=== PATIENT | female | born 1950 | race Caucasian/White ===

== ENCOUNTER → 2017-08-19 | Outpatient (CLI) | payer MEDICARE ==
[~2017-08-19] MED LIST: CONTRAST GIVEN MC; IOHEXOL 240 MG/ML 50ML VIAL. PO
[2017-08-19 08:57] LABS: BLOOD UREA NITROGEN 20 mg/dL (7-20)
[2017-08-19 08:57] LABS: CREATININE 0.9 mg/dL (0.6-1.0); GFR 62.6
[2017-08-19] MEDS: IOHEXOL 300 MG/ML 100ML VIAL. IV (09:43)
== END | disposition home or self-care (01) ==
LOC: CT 07:22
DX: M47.896 Other spondylosis, lumbar region (principal); I70.0 Atherosclerosis of aorta; I25.10 Atherosclerotic heart disease of native coronary artery without angina pectoris; J98.11 Atelectasis; I10 Essential (primary) hypertension; E11.9 Type 2 diabetes mellitus without complications; E78.5 Hyperlipidemia, unspecified
CPT/HCPCS: 36415; 74177; 82565; 84520; Q9966; Q9967

== ENCOUNTER → 2017-08-23 | Outpatient (CLI) | payer MEDICARE ==
[2017-08-23] MEDS: REGADENOSON 0.4 MG/5 ML DISP.SYRIN. IV (10:10)
== END | disposition home or self-care (01) ==
LOC: NM 08:22
DX: I25.10 Atherosclerotic heart disease of native coronary artery without angina pectoris (principal); E11.65 Type 2 diabetes mellitus with hyperglycemia; E78.00 Pure hypercholesterolemia, unspecified
CPT/HCPCS: 78452; 93017; 96374; 96375; 96376; A9500; J2785

== ENCOUNTER → 2017-09-10 | Outpatient (CLI) | payer MEDICARE | END | disposition home or self-care (01) | LOC: KCIC 08:27 | DX: L03.115 Cellulitis of right lower limb (principal); E11.9 Type 2 diabetes mellitus without complications | CPT/HCPCS: 73620 ==

== ENCOUNTER 2018-06-11 22:31 | Emergency (ER) | payer MEDICARE ==
[~2018-06-11] VITALS: Ht 165.1 cm; Wt 78.5 kg
[~2018-06-11 22:31] MED LIST changes: +ALBU8.5H6 INH; +ASPI-482 PO; +AVANDIA; -CONTRAST GIVEN MC; +CRESTOR10 MG PO; +CYCL10TA2 PO; +DOCU-109 PO; +HYDR-3165 PO; +INSU100C4 SQ; +INSU100V8 SQ; -IOHEXOL 240 MG/ML 50ML VIAL. PO; +NAPR220T70 PO; +NAPR500T8 PO; +OMEG500C3 PO; +OXYB5TAB7 PO; +PROP40TA PO; +SITA100T PO; +TRAM50TA PO; +TRAZ-85 PO; +ZOLP10TA PO; +albuterol; +ambien; +fish oil; +flexeril; +traz; +trazodone
--- NOTE | 2018-06-12 00:29 | PHYS DOC ---
Past Medical History Past Medical History: Anxiety, Diabetes-Type II, Heart Disease, Hypertension, Other Additional Past Medical Histor: INSOMNIA Past Surgical History: Coronary Bypass Surgery Additional Past Surgical Histo: CABG x 4, back surgery Alcohol Use: None Drug Use: None Adult General Chief Complaint Chief Complaint: BLOOD SUGAR PROBLEM HPI HPI Patient is a 68 year old female who presents with repeated blood sugar. Her sugar was in the 400s shortly after starting some nausea and vomiting this evening. No blood in the emesis. Patient feels better. This started approximately 1830 tonight. No diarrhea. Patient was eating [place] food from a restaurant. No other family members who ate the same food have been sick. Time his made things better. Patient and daughter who is with the patient called her primary care physician who recommended that the patient be evaluated in the emergency department.[] Review of Systems Review of Systems Constitutional: Denies fever or chills [] Eyes: Denies change in visual acuity, redness, or eye pain [] HENT: Denies nasal congestion or sore throat [] Respiratory: Denies cough or shortness of breath [] Cardiovascular: No chest pain or palpitations[] GI:s SEE history of present illness [] : Denies dysuria or hematuria [] Musculoskeletal: Denies back pain or joint pain [] Integument: Denies rash or skin lesions [] Neurologic: Denies headache, focal weakness or sensory changes [] Endocrine: Denies polyuria or polydipsia [] All other systems were reviewed and found to be within normal limits, except as documented in this note. Current Medications Current Medications Current Medications Medications (Trade) Dose Ordered Sig/[facility] Start Time Stop Time Status Last Admin Dose Admin Hyoscyamine (Anaspaz) 0.125 mg ONCE ONCE 06/12/18 01:00 06/12/18 01:01 DC 06/12/18 01:27 0.125 MG Ondansetron HCl (Zofran) 4 mg 1X ONCE 06/12/18 01:00 06/12/18 01:01 DC 06/12/18 01:27 4 MG Sodium Chloride 500 ml @ 500 mls/hr 1X ONCE 06/12/18 01:00 06/12/18 01:59 DC 06/12/18 01:28 500 MLS/HR Allergies Allergies Allergies Coded Allergies Type Severity Reaction Last Updated Verified No Known Medication Allergies Allergy Unknown 09/27/14 Yes doxycycline Adverse Reaction Intermediate nausea and vomiting 09/16/14 Yes Physical Exam Physical Exam Constitutional: Well developed, well nourished, no acute distress, non-toxic appearance. [] HENT: Normocephalic, atraumatic, bilateral external ears normal, oropharynx moist, no oral exudates, nose normal. [] Eyes: PERRLA, EOMI, conjunctiva normal, no discharge. [] Neck: Normal range of motion, no tenderness, supple, no stridor. [] Cardiovascular:Heart rate regular rhythm, no murmur [] Lungs & Thorax: Bilateral breath sounds clear to auscultation [] Abdomen: Bowel sounds normal, soft, no tenderness, no masses, no pulsatile masses. [] Skin: Warm, dry, no erythema, no rash. [] Back: No tenderness, no CVA tenderness. [] Extremities: No tenderness, no cyanosis, no clubbing, ROM intact, no edema. [] Neurologic: Alert and oriented X 3, normal motor function, normal sensory function, no focal deficits noted. [] Psychologic: Affect normal, judgement normal, mood normal. [] Current Patient Data Vital Signs Vital Signs Date Time Temp Pulse Resp B/P (MAP) Pulse Ox O2 Delivery O2 Flow Rate FiO2 06/11/18 23:36 98.4 76 18 126/61 (82) 97 Room Air 98.4 Lab Values Laboratory Tests Test 06/12/18 00:08 06/12/18 00:10 06/12/18 00:20 06/12/18 02:02 Glucose (Fingerstick) 261 mg/dL (70-99) H 261 mg/dL (70-99) H White Blood Count 12.9 x10^3/uL (4.0-11.0) H Red Blood Count 4.93 x10^6/uL (3.50-5.40) Hemoglobin 14.6 g/dL (12.0-15.5) Hematocrit 44.1 % (36.0-47.0) Mean Corpuscular Volume 90 fL (79-100) Mean Corpuscular Hemoglobin 30 pg (25-35) Mean Corpuscular Hemoglobin Concent 33 g/dL (31-37) Red Cell Distribution Width 13.3 % (11.5-14.5) Platelet Count 197 x10^3/uL (140-400) Neutrophils (%) (Auto) 81 % (31-73) H Lymphocytes (%) (Auto) 8 % (24-48) L Monocytes (%) (Auto) 9 % (0-9) Eosinophils (%) (Auto) 2 % (0-3) Basophils (%) (Auto) 0 % (0-3) Neutrophils # (Auto) 10.4 x10^3uL (1.8-7.7) H Lymphocytes # (Auto) 1.0 x10^3/uL (1.0-4.8) Monocytes # (Auto) 1.2 x10^3/uL (0.0-1.1) H Eosinophils # (Auto) 0.3 x10^3/uL (0.0-0.7) Basophils # (Auto) 0.0 x10^3/uL (0.0-0.2) Sodium Level 142 mmol/L (136-145) Potassium Level 3.6 mmol/L (3.5-5.1) Chloride Level 104 mmol/L (98-107) Carbon Dioxide Level 29 mmol/L (21-32) Anion Gap 9 (6-14) Blood Urea Nitrogen 18 mg/dL (7-20) Creatinine 0.7 mg/dL (0.6-1.0) Estimated GFR (Cockcroft-Gault) 83.5 BUN/Creatinine Ratio 26 (6-20) H Glucose Level 272 mg/dL (70-99) H Calcium Level 9.7 mg/dL (8.5-10.1) Total Bilirubin 0.5 mg/dL (0.2-1.0) Aspartate Amino Transferase (AST) 19 U/L (15-37) Alanine Aminotransferase (ALT) 25 U/L (14-59) Alkaline Phosphatase 62 U/L (46-116) Total Protein 6.9 g/dL (6.4-8.2) Albumin 3.2 g/dL (3.4-5.0) L Albumin/Globulin Ratio 0.9 (1.0-1.7) L Lipase 155 U/L (73-393) Urine Collection Type Unknown Urine Color Yellow Urine Clarity Clear Urine pH 7.5 Urine Specific [place] >=1.030 Urine Protein 30 mg/dL (NEG-TRACE) Urine Glucose (UA) >=1000 mg/dL (NEG) Urine Ketones (Stick) 15 mg/dL (NEG) Urine Blood Negative (NEG) Urine Nitrite Negative (NEG) Urine Bilirubin Negative (NEG) Urine Urobilinogen Dipstick 1.0 mg/dL (0.2 mg/dL) Urine Leukocyte Esterase Negative (NEG) Urine RBC 1-2 /HPF (0-2) Urine WBC 1-4 /HPF (0-4) Urine Squamous Epithelial Cells Mod /LPF Urine Bacteria Few /HPF (0-FEW) Urine Mucus Slight /LPF Laboratory Tests 06/12/18 00:10 Laboratory Tests 06/12/18 00:10 EKG EKG [] Radiology/Procedures Radiology/Procedures [] Course & Med Decision Making Course & Med Decision Making Pertinent Labs and Imaging studies reviewed. (See chart for details) ED course: Patient arrived, was placed in bed, tolerated exam well. Patient was given IV fluids and she was. Tolerant. Her blood sugar did not significantly change after the IV fluids. But she felt better and wanted to go home. Enzo decision making: Patient does not appear to be in diabetic ketoacidosis given the normal high carb on her chemistry panel. No evidence of a urinary tract infection. No evidence of significant illness nor acute coronary syndrome triggering today's emergency department visit.[] Dragon Disclaimer Dragon Disclaimer This electronic medical record was generated, in whole or in part, using a voice recognition dictation system. Departure Departure Impression: Primary Impression: Hyperglycemia due to type 2 diabetes mellitus Additional Impression: Vomiting Disposition: HOME, SELF-CARE Condition: IMPROVED Referrals: JOANA GILLETTE MD (PCP) Follow-up within 2 days Patient Instructions: Nausea and Vomiting Additional Instructions: Drink plenty of fluids, frequent small sips. No fatty foods, no milk, and no pepper for the next 48 hours. For the next 48 hours eat a diet rich in carbohydrates with foods such as bananas, rice, applesauce, and toast. Follow- up with your regular doctor within 2 days. Return to the ER if unable to tolerate liquids, your sugar persistently stays above 300, or any other concerns. 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
[2018-06-12 00:31] LABS: BASO % 0 % (0-3); EOS # 0.3 x10^3/uL (0.0-0.7); EOS % 2 % (0-3); HEMATOCRIT 44.1 % (36.0-47.0); HEMOGLOBIN 14.6 g/dL (12.0-15.5); LYMPH % 8 % (24-48); MEAN CORPUSCULAR HEMOGLOBIN 30 pg (25-35); MEAN CORPUSCULAR HGB CONC 33 g/dL (31-37); MEAN CORPUSCULAR VOLUME 90 fL (79-100); MONO # 1.2 x10^3/uL (0.0-1.1); MONO % 9 % (0-9); NEUT # 10.4 x10^3uL (1.8-7.7); NEUT % 81 % (31-73); PLATELET COUNT 197 x10^3/uL (140-400); RED BLOOD COUNT 4.93 x10^6/uL (3.50-5.40); RED CELL DISTRIBUTION WIDTH 13.3 % (11.5-14.5); WHITE BLOOD COUNT 12.9 x10^3/uL (4.0-11.0)
[2018-06-12 00:34] LABS: BILIRUBIN,URINE NEGATIVE (NEG); CLARITY,URINE CLEAR; COLOR,URINE YELLOW; NITRITE,URINE NEGATIVE (NEG); PH,URINE 7.5; PROTEIN,URINE 30 mg/dL (NEG-TRACE)
[2018-06-12 00:38] LABS: BACTERIA,URINE FEW /HPF (0-FEW); SQUAMOUS EPITHELIAL CELL,UR MOD /LPF
[2018-06-12 00:39] LABS: CALCIUM 9.7 mg/dL (8.5-10.1); CREATININE 0.7 mg/dL (0.6-1.0); GFR 83.5; POTASSIUM 3.6 mmol/L (3.5-5.1)
[2018-06-12 00:45] LABS: ALBUMIN 3.2 g/dL (3.4-5.0); ALBUMIN/GLOBULIN RATIO 0.9 (1.0-1.7); TOTAL BILIRUBIN 0.5 mg/dL (0.2-1.0); TOTAL PROTEIN 6.9 g/dL (6.4-8.2)
[2018-06-12] MEDS ORDERED: ONDANSETRON PF 4 MG/2 ML VIAL. IV ONE (01:00)
[2018-06-12] MEDS ORDERED: HYOSCYAMINE 0.125 MG TAB.RAPDIS PO ONE (01:00)
[2018-06-12] MEDS ORDERED: IV NORMAL SALINE 500ML BAG 500 ML IV ONE (01:00)
[2018-06-12 02:00] VITALS: BP 115/55
[2018-06-12] MEDS ORDERED: HYOS0.1264 PO (02:23)
[2018-06-12] MEDS ORDERED: ONDA4TAB7 PO (02:23)
== END 2018-06-12 02:30 | disposition home or self-care (01) ==
LOC: ER 22:31
DX: E11.65 Type 2 diabetes mellitus with hyperglycemia (principal); R11.2 Nausea with vomiting, unspecified; I11.9 Hypertensive heart disease without heart failure; Z95.1 Presence of aortocoronary bypass graft; Z88.1 Allergy status to other antibiotic agents
CPT/HCPCS: 36415; 80053; 81001; 82962; 83690; 85025; 96361; 96374; 99283; J2405; J7040

== ENCOUNTER 2018-07-10 08:07 | Emergency (ER) | payer MEDICARE ==
[~2018-07-10] VITALS: Ht 165.1 cm; Wt 77.1 kg
[~2018-07-10 08:07] MED LIST changes: +HYOS0.1264 PO; +ONDA4TAB7 PO; +TRAZ-118 PO; -TRAZ-85 PO
[2018-07-10] MEDS ORDERED: ONDANSETRON PF 4 MG/2 ML VIAL. IV ONE (09:15)
[2018-07-10] MEDS ORDERED: MORPHINE SULFATE 4 MG/ML VIAL. IV ONE (09:15)
--- NOTE | 2018-07-10 09:26 | PHYS DOC ---
Past Medical History Past Medical History: Anxiety, Diabetes-Type II, Heart Disease, Hypertension, Other Additional Past Medical Histor: INSOMNIA Past Surgical History: Coronary Bypass Surgery Additional Past Surgical Histo: CABG x 4, back surgery Alcohol Use: None Drug Use: None Adult General Chief Complaint Chief Complaint: HIP PAIN HPI HPI Patient is a 68 year old female, accompanied by her family, with complaints of left hip pain since feeling a pop in her hip last night at 2030. Patient denies any fall. States that she tripped and caught herself and that is when she felt her hip pop. Patient reports she has been able to minimally bear weight on the leg since the injury. She rates the pain a constant 6 out of 10 on the pain scale and states that with movement or weightbearing the pain shoots to a 10 out of 10. She denies any numbness, tingling, or weakness of the affected extremity. She states that she last had something to drink approximately an hour prior to arrival. She denies any chest pain, dizziness, syncope, or back pain. Review of Systems Review of Systems Constitutional: Denies fever or chills [] Eyes: Denies changes Cardiovascular: No additional information not addressed in HPI [] Musculoskeletal: See history of present illness Integument: Denies rash or skin lesions [] Neurologic: Denies headache, focal weakness or sensory changes [] Endocrine: Denies polyuria or polydipsia [] Complete systems were reviewed and found to be within normal limits, except as documented in this note. Current Medications Current Medications Current Medications Medications (Trade) Dose Ordered Sig/[facility] Start Time Stop Time Status Last Admin Dose Admin Morphine Sulfate (Morphine Sulfate) 4 mg 1X ONCE 07/10/18 09:15 07/10/18 09:16 DC 07/10/18 09:26 4 MG Ondansetron HCl (Zofran) 4 mg 1X ONCE 07/10/18 09:15 07/10/18 09:16 DC 07/10/18 09:25 4 MG Allergies Allergies Allergies Coded Allergies Type Severity Reaction Last Updated Verified doxycycline Adverse Reaction Intermediate nausea and vomiting 09/16/14 Yes Physical Exam Physical Exam Constitutional: Well developed, well nourished, moderate distress, non-toxic appearance. [] HENT: Normocephalic, atraumatic, bilateral external ears normal, nose normal. [ ] Eyes: conjunctiva normal, no discharge. [] Neck: Normal range of motion, no stridor. [] Lungs & Thorax: Respirations even and unlabored, no retractions Skin: Warm, dry, no erythema, no rash. [] Extremities: No cyanosis, no clubbing, no edema; left lateral hip TTP, no shortening of lower left extremity, mild external rotation of lower left extremity, 2+ pulses and left dorsalis pedis and left posterior tibial Neurologic: Alert and oriented X 3, normal motor function, normal sensory function, no focal deficits noted. [] Psychologic: Affect normal, judgement normal, mood normal. [] Current Patient Data Vital Signs Vital Signs Date Time Temp Pulse Resp B/P (MAP) Pulse Ox O2 Delivery O2 Flow Rate FiO2 07/10/18 09:56 16 95 Room Air 07/10/18 08:54 99.1 81 162/72 (102) 99.1 EKG EKG [] Radiology/Procedures Radiology/Procedures PROCEDURE: HIP LEFT 2V WITH PELVIS Left hip, 3 views, 07/10/2018: HISTORY: Injury No fracture or dislocation is identified. The hip joint spaces are well preserved. There is mild spurring along the margins of both greater trochanters. A surgical clip is projected over left groin region. IMPRESSION: No acute bony abnormality is detected.[] Course & Med Decision Making Course & Med Decision Making Pertinent Labs and Imaging studies reviewed. (See chart for details) Dx: left hip pain, X-ray of left hip was negative for any acute fracture or dislocation. Discussed these results with patient and her family. We will order a walker for patient to use for ambulation. Encouraged patient to apply ice and activity as tolerated. Prescription written for hydrocodone. Follow-up with your primary care doctor if symptoms persist, return to the ER if symptoms worsen. Patient verbalized an understanding of home care, medications, follow-up, and return to ED instructions and was in agreement with the plan of care. [] Dragon Disclaimer Dragon Disclaimer This electronic medical record was generated, in whole or in part, using a voice recognition dictation system. Departure Departure Impression: Primary Impression: Acute pain of left hip Disposition: HOME, SELF-CARE Condition: STABLE Referrals: JOANA GILLETTE MD (PCP) Patient Instructions: Hip Pain Additional Instructions: Fill prescription(s) and use as directed. Recommend application of ice, elevation, and rest of affected extremity. Use the walker provided for ambulation. Follow up with your primary care doctor if symptoms persist. Return to the ER if your symptoms worsen. Scripts Hydrocodone Bit/Acetaminophen (HYDROCODONE-APAP 5-325 ) 1 Tab Tablet 1 TAB PO PRN Q6HRS PRN for PAIN for 3 Days, #12 TAB 0 Refills Prov: ANTONELLA MENDOZA APRN 07/10/18 ANTONELLA MENDOZA APRN Jul 10, 2018 09:26
--- NOTE | 2018-07-10 09:53 | RAD ---
Left hip, 3 views, 07/10/2018: HISTORY: Injury No fracture or dislocation is identified. The hip joint spaces are well preserved. There is mild spurring along the margins of both greater trochanters. A surgical clip is projected over left groin region. IMPRESSION: No acute bony abnormality is detected. Electronically signed by: Samir Singer MD (07/10/2018 9:50 AM) [facility]
[2018-07-10] MEDS ORDERED: HYDR-2761 PO (10:38)
[2018-07-10 10:53] VITALS: BP 120/59
== END 2018-07-10 11:20 | disposition home or self-care (01) ==
LOC: ER 08:07
DX: M25.552 Pain in left hip (principal); F41.9 Anxiety disorder, unspecified; E11.9 Type 2 diabetes mellitus without complications; I12.9 Hypertensive chronic kidney disease with stage 1 through stage 4 chronic kidney disease, or unspecified chronic kidney disease; Z95.1 Presence of aortocoronary bypass graft; Z88.8 Allergy status to other drugs, medicaments and biological substances
CPT/HCPCS: 73502; 96374; 96375; 99284; J2270; J2405

== ENCOUNTER 2018-12-26 14:26 | Emergency (ER) | payer MEDICARE ==
[~2018-12-26] VITALS: Ht 160 cm; Wt 80.7 kg
[~2018-12-26 14:26] MED LIST changes: +HYDR-2761 PO
--- NOTE | 2018-12-26 15:03 | PHYS DOC ---
Past Medical History Past Medical History: Anxiety, CAD, Diabetes-Type II, High Cholesterol, Heart Disease, Hypertension, Other Additional Past Medical Histor: INSOMNIA Past Surgical History: Coronary Bypass Surgery Additional Past Surgical Histo: CABG x 4, back surgery Alcohol Use: None Drug Use: None Adult General Chief Complaint Chief Complaint: BLOOD SUGAR PROBLEM [facility] HPI Patient is a 68 year old female that presents stating that her glucometer would not read at home states she was reading too high. The patient also states she's been feeling short of breath lately. She states after read too high as she gave her cells 50 units of insulin. After this it read 498 and so she decided come to the hospital. She says he usually runs between 150-200. Review of Systems Review of Systems Constitutional: Denies fever or chills [] Eyes: Denies change in visual acuity, redness, or eye pain [] HENT: Denies nasal congestion or sore throat [] Respiratory: Reports shortness of breath.] Cardiovascular: No additional information not addressed in HPI [] GI: Denies abdominal pain, nausea, vomiting, bloody stools or diarrhea [] : Denies dysuria or hematuria [] Musculoskeletal: Denies back pain or joint pain [] Integument: Denies rash or skin lesions [] Neurologic: Denies headache, focal weakness or sensory changes [] Complete systems were reviewed and found to be within normal limits, except as documented in this note. Current Medications Current Medications Current Medications Medications (Trade) Dose Ordered Sig/[facility] Start Time Stop Time Status Last Admin Dose Admin Insulin Human Regular (HumuLIN R VIAL) 10 unit 1X STAT 12/26/18 16:08 12/26/18 16:12 DC 12/26/18 16:39 10 UNIT Sodium Chloride 1,000 ml @ 1,000 mls/hr 1X ONCE 12/26/18 15:15 12/26/18 16:14 DC 12/26/18 15:29 1,000 MLS/HR Allergies Allergies Allergies Coded Allergies Type Severity Reaction Last Updated Verified doxycycline Adverse Reaction Intermediate nausea and vomiting 09/16/14 Yes Physical Exam Physical Exam Constitutional: Well developed, well nourished, tearful, non-toxic appearance. [] HENT: Normocephalic, atraumatic, bilateral external ears normal, oropharynx moist, no oral exudates, nose normal. [] Eyes: PERRLA, EOMI, conjunctiva normal, no discharge. [] Neck: Normal range of motion, no tenderness, supple, no stridor. [] Cardiovascular:Heart rate regular rhythm, no murmur [] Lungs & Thorax: Bilateral breath sounds wheezy on left, clear on right Abdomen: Bowel sounds normal, soft, no tenderness, no masses, no pulsatile masses. [] Skin: Warm, dry, no erythema, no rash. [] Back: No tenderness, no CVA tenderness. [] Extremities: No tenderness, no cyanosis, no clubbing, ROM intact, no edema. [] Neurologic: Alert and oriented X 3, normal motor function, normal sensory function, no focal deficits noted. [] Psychologic: Affect normal, judgement normal, mood normal. [] Current Patient Data Vital Signs Vital Signs Date Time Temp Pulse Resp B/P (MAP) Pulse Ox O2 Delivery O2 Flow Rate FiO2 12/26/18 14:41 98.1 76 24 146/70 (95) 96 Room Air 98.1 Lab Values Laboratory Tests Test 12/26/18 14:39 12/26/18 14:42 12/26/18 15:05 12/26/18 17:16 Urine Collection Type Unknown Urine Color Yellow Urine Clarity Clear Urine pH 7.0 Urine Specific [place] >=1.030 Urine Protein Negative mg/dL (NEG-TRACE) Urine Glucose (UA) >=1000 mg/dL (NEG) Urine Ketones (Stick) Negative mg/dL (NEG) Urine Blood Negative (NEG) Urine Nitrite Negative (NEG) Urine Bilirubin Negative (NEG) Urine Urobilinogen Dipstick 0.2 mg/dL (0.2 mg/dL) Urine Leukocyte Esterase Negative (NEG) Urine RBC 0 /HPF (0-2) Urine WBC 0 /HPF (0-4) Urine Squamous Epithelial Cells Mod /LPF Urine Bacteria 0 /HPF (0-FEW) Urine Yeast Present /HPF Glucose (Fingerstick) 470 mg/dL (70-99) H 249 mg/dL (70-99) H White Blood Count 8.6 x10^3/uL (4.0-11.0) Red Blood Count 4.66 x10^6/uL (3.50-5.40) Hemoglobin 14.3 g/dL (12.0-15.5) Hematocrit 41.5 % (36.0-47.0) Mean Corpuscular Volume 89 fL (79-100) Mean Corpuscular Hemoglobin 31 pg (25-35) Mean Corpuscular Hemoglobin Concent 35 g/dL (31-37) Red Cell Distribution Width 12.6 % (11.5-14.5) Platelet Count 212 x10^3/uL (140-400) Neutrophils (%) (Auto) 68 % (31-73) Lymphocytes (%) (Auto) 19 % (24-48) L Monocytes (%) (Auto) 7 % (0-9) Eosinophils (%) (Auto) 5 % (0-3) H Basophils (%) (Auto) 1 % (0-3) Neutrophils # (Auto) 5.9 x10^3/uL (1.8-7.7) Lymphocytes # (Auto) 1.7 x10^3/uL (1.0-4.8) Monocytes # (Auto) 0.6 x10^3/uL (0.0-1.1) Eosinophils # (Auto) 0.5 x10^3/uL (0.0-0.7) Basophils # (Auto) 0.1 x10^3/uL (0.0-0.2) Prothrombin Time 12.3 SEC (11.7-14.0) Prothrombin Time INR 0.9 (0.8-1.1) Activated Partial Thromboplast Time 21 SEC (24-38) L Sodium Level 137 mmol/L (136-145) Potassium Level 4.5 mmol/L (3.5-5.1) Chloride Level 102 mmol/L (98-107) Carbon Dioxide Level 23 mmol/L (21-32) Anion Gap 12 (6-14) Blood Urea Nitrogen 19 mg/dL (7-20) Creatinine 0.8 mg/dL (0.6-1.0) Estimated GFR (Cockcroft-Gault) 71.5 BUN/Creatinine Ratio 24 (6-20) H Glucose Level 478 mg/dL (70-99) H Lactic Acid Level 1.7 mmol/L (0.4-2.0) Calcium Level 9.4 mg/dL (8.5-10.1) Total Bilirubin 0.5 mg/dL (0.2-1.0) Aspartate Amino Transferase (AST) 25 U/L (15-37) Alanine Aminotransferase (ALT) 23 U/L (14-59) Alkaline Phosphatase 74 U/L (46-116) Troponin I Quantitative < 0.017 ng/mL (0.000-0.055) QF-Fqv-V-Type Natriuretic Peptide 281 pg/mL (0-124) H Total Protein 6.8 g/dL (6.4-8.2) Albumin 3.3 g/dL (3.4-5.0) L Albumin/Globulin Ratio 0.9 (1.0-1.7) L Laboratory Tests 12/26/18 15:05 Laboratory Tests 12/26/18 15:05 EKG EKG [] Radiology/Procedures Radiology/Procedures [][facility] [address] [place], [place] [id number] IMAGING REPORT Signed PATIENT: GURPREET SERRANO ACCOUNT: [id number] : 1950 LOCATION: ER AGE: 68 SEX: F EXAM STATUS: REG ER ORD. PHYSICIAN: MARGUERITE GLYNN APRN REASON: shortness of breath PROCEDURE: CHEST PA & LATERAL CHEST PA LATERAL Clinical indications: Shortness of breath. COMPARISON: January 03, 2015. Findings: No acute lung infiltrate or pleural effusion or pulmonary edema or lung mass or pneumothorax is seen. A sternotomy is again evident. The heart size, pulmonary vasculature, mediastinum and both julius are otherwise unremarkable. The osseous structures appear intact. Impression: No acute radiographic abnormality is seen. Electronically signed by: See Beal MD (12/26/2018 3:28 PM) [facility] DICTATED and SIGNED BY: SEE BEAL MD DATE: 12/26/18 1528 Course & Med Decision Making Course & Med Decision Making Pertinent Labs and Imaging studies reviewed. (See chart for details) Will get labs, chest xray, and give supportive care. Labs show blood sugar of 470. Will give 1 L of fluids and 10 Units of Insulin and then recheck. On recheck blood sugar is 241. Will d/c home. Labs and imaging were otherwise unremarkable. Dragon Disclaimer Dragon Disclaimer This electronic medical record was generated, in whole or in part, using a voice recognition dictation system. Departure Departure Impression: Primary Impression: Hyperglycemia due to type 2 diabetes mellitus Disposition: HOME, SELF-CARE Condition: STABLE Referrals: JOANA GILLETTE MD (PCP) Patient Instructions: Hyperglycemia Additional Instructions: Thank you for visiting [facility]. We appreciate you trusting us with your care. If any additional problems come up don't hesitate to return to visit us. Please follow up with your primary care provider so they can plan additional care if needed and know about the problem that you had. If symptoms worsen come back to the Emergency Department. Any concerning symptoms that start such as chest pain, shortness of air, weakness or numbness on one side of the body, running high fevers or any other concerning symptoms return to the ER. Please keep a close watch on your sugars and follow up with primary care manuelito chang on Saturday. MARGUERITE GLYNN APRN Dec 26, 2018 15:03
[2018-12-26] MEDS ORDERED: IV NORMAL SALINE 1000ML BAG 1,000 ML IV ONE (15:15)
[2018-12-26 15:20] LABS: BASO # 0.1 x10^3/uL (0.0-0.2); BASO % 1 % (0-3); EOS # 0.5 x10^3/uL (0.0-0.7); EOS % 5 % (0-3); HEMATOCRIT 41.5 % (36.0-47.0); HEMOGLOBIN 14.3 g/dL (12.0-15.5); LYMPH # 1.7 x10^3/uL (1.0-4.8); LYMPH % 19 % (24-48); MEAN CORPUSCULAR HEMOGLOBIN 31 pg (25-35); MEAN CORPUSCULAR HGB CONC 35 g/dL (31-37); MEAN CORPUSCULAR VOLUME 89 fL (79-100); MONO # 0.6 x10^3/uL (0.0-1.1); MONO % 7 % (0-9); NEUT # 5.9 x10^3/uL (1.8-7.7); NEUT % 68 % (31-73); PLATELET COUNT 212 x10^3/uL (140-400); RED BLOOD COUNT 4.66 x10^6/uL (3.50-5.40); RED CELL DISTRIBUTION WIDTH 12.6 % (11.5-14.5); WHITE BLOOD COUNT 8.6 x10^3/uL (4.0-11.0)
--- NOTE | 2018-12-26 15:31 | RAD ---
CHEST PA LATERAL Clinical indications: Shortness of breath. COMPARISON: January 03, 2015. Findings: No acute lung infiltrate or pleural effusion or pulmonary edema or lung mass or pneumothorax is seen. A sternotomy is again evident. The heart size, pulmonary vasculature, mediastinum and both julius are otherwise unremarkable. The osseous structures appear intact. Impression: No acute radiographic abnormality is seen. Electronically signed by: Robert Beal MD (12/26/2018 3:28 PM) [facility]
[2018-12-26 15:32] LABS: PROTHROMBIN TIME PATIENT 12.3 SEC (11.7-14.0)
[2018-12-26 15:37] LABS: CALCIUM 9.4 mg/dL (8.5-10.1); CREATININE 0.8 mg/dL (0.6-1.0); GFR 71.5; POTASSIUM 4.5 mmol/L (3.5-5.1)
[2018-12-26 15:40] LABS: BACTERIA,URINE 0 /HPF (0-FEW); BILIRUBIN,URINE NEGATIVE (NEG); CLARITY,URINE CLEAR; COLOR,URINE YELLOW; NITRITE,URINE NEGATIVE (NEG); PROTEIN,URINE NEGATIVE (NEG-TRACE); RBC,URINE 0 /HPF (0-2); SQUAMOUS EPITHELIAL CELL,UR MOD /LPF; UROBILINOGEN,URINE 0.2 mg/dL (0.2 mg/dL); WBC,URINE 0 /HPF (0-4); YEAST,URINE PRESENT /HPF
[2018-12-26 15:43] LABS: ALBUMIN 3.3 g/dL (3.4-5.0); ALBUMIN/GLOBULIN RATIO 0.9 (1.0-1.7); TOTAL BILIRUBIN 0.5 mg/dL (0.2-1.0); TOTAL PROTEIN 6.8 g/dL (6.4-8.2)
[2018-12-26] MEDS ORDERED: INSULIN REGULAR 100 UNIT/ML 3ML VIAL. IV STA (16:08)
--- NOTE | 2018-12-26 16:12 | EKG ---
[facility] [address] [place] [address] Test Date: 2018-12-26 Test Time: 15:23:12 Pat Name: GURPREET SERRANO Department: Room: Gender: F [employer]: : 1950 Requested By: MARGUERITE GLYNN Order Number: [id number] Reading MD: Measurements Intervals [place] Rate: 71 P: 34 WA: 148 QRS: 69 QRSD: 94 T: 24 QT: 404 QTc: 444 Interpretive Statements SINUS RHYTHM NO SPECIFIC ECG ABNORMALITIES RI6.01 Unconfirmed report No previous ECG available for comparison
[2018-12-26 17:00] VITALS: BP 123/60
== END 2018-12-26 17:33 | disposition home or self-care (01) ==
LOC: ER 14:26
DX: E11.65 Type 2 diabetes mellitus with hyperglycemia (principal); R06.02 Shortness of breath; E78.00 Pure hypercholesterolemia, unspecified; I11.9 Hypertensive heart disease without heart failure; I25.10 Atherosclerotic heart disease of native coronary artery without angina pectoris; Z95.1 Presence of aortocoronary bypass graft; Z95.5 Presence of coronary angioplasty implant and graft; Z88.1 Allergy status to other antibiotic agents; Z79.4 Long term (current) use of insulin
CPT/HCPCS: 36415; 71046; 80053; 81001; 82962; 83605; 83880; 84484; 85025; 85610; 85730; 93005; 96361; 96374; 99285; J1815; J7030

== ENCOUNTER → 2019-05-06 | Outpatient (CLI) | payer MEDICARE ==
[~2019-05-06] MED LIST changes: +OXYB5TAB10 PO; -OXYB5TAB7 PO
--- NOTE | 2019-05-06 17:01 | KCIC ---
Three-view left foot study Clinical indications: Left foot pain laterally for 2 weeks. May have hit something. FINDINGS: No acute fracture or dislocation or lytic process or periosteal reaction is evident. No plantar spur of the calcaneus is seen. IMPRESSION: No acute osseous abnormality. Electronically signed by: Robert Beal MD (05/06/2019 4:58 PM) [id number]
== END | disposition home or self-care (01) ==
LOC: KCIC 11:39
PROVIDERS: ATTEND Nurse Practitioner Family
DX: M79.672 Pain in left foot (principal)
CPT/HCPCS: 73630

== ENCOUNTER 2019-06-07 16:43 | Emergency (ER) | payer MEDICARE ==
[~2019-06-07] VITALS: Ht 160 cm; Wt 86.0 kg
[2019-06-07 17:24] LABS: BILIRUBIN,URINE NEGATIVE (NEG); COLOR,URINE YELLOW; NITRITE,URINE NEGATIVE (NEG); PH,URINE 6.5; PROTEIN,URINE NEGATIVE (NEG-TRACE); UROBILINOGEN,URINE 0.2 mg/dL (0.2 mg/dL)
[2019-06-07 17:28] LABS: CLARITY,URINE CLEAR
[2019-06-07 17:32] LABS: BACTERIA,URINE MODERATE /HPF (0-FEW); RBC,URINE 0 /HPF (0-2); SQUAMOUS EPITHELIAL CELL,UR MANY /LPF
--- NOTE | 2019-06-07 17:44 | PHYS DOC ---
Past Medical History Past Medical History: Anxiety, CAD, Diabetes-Type II, High Cholesterol, Heart Disease, Hypertension, Other Additional Past Medical Histor: INSOMNIA (REBECCA CORONA DO) Past Surgical History: Coronary Bypass Surgery Additional Past Surgical Histo: CABG x 4, back surgery (REBECCA CORONA DO) Smoking Status: Current Every Day Smoker Alcohol Use: None Drug Use: None (REBECCA CORONA DO) Attending Signature I have participated in the care of this patient and I have reviewed and agree with all pertinent clinical information above including history, exam, and recom mendations. (NOMAN CRUZ MD) Adult General Chief Complaint Chief Complaint: ABDOMINAL PAIN HPI HPI Patient is a 69 year old female who presented to ER today for evaluation of left lower abdominal pain, cramping in nature, started yesterday. Patient denies any nausea or vomiting. Patient denies any diarrhea. Patient denies any fever. Patient said the pain did not get any better throughout the day yesterday and then IT seemed to get worse today so she came in for evaluation. She said nothing makes it better or worse. She denies any urinary symptoms. She says she never experienced this type of pain before. Patient denies any back pain. (REBECCA CORONA DO) Review of Systems Review of Systems All other ROS is negative unless otherwise noted in HPI (REBECCA CORONA DO) Current Medications Current Medications Current Medications Medications (Trade) Dose Ordered Sig/Karina Start Time Stop Time Status Last Admin Dose Admin Fentanyl Citrate (Fentanyl 2ml Vial) 50 mcg 1X ONCE 06/07/19 18:00 06/07/19 18:01 DC 06/07/19 18:36 50 MCG Info (CONTRAST GIVEN -- Rx MONITORING) 1 each PRN DAILY PRN 06/07/19 18:15 06/07/19 19:33 DC Iohexol (Omnipaque 300 Mg/ml) 75 ml 1X ONCE 06/07/19 18:00 06/07/19 18:01 DC 06/07/19 18:17 75 ML Ondansetron HCl (Zofran) 4 mg 1X ONCE 06/07/19 18:00 06/07/19 18:01 DC 06/07/19 18:35 4 MG Sodium Chloride 1,000 ml @ 1,000 mls/hr 1X ONCE 06/07/19 18:00 06/07/19 18:59 DC 06/07/19 18:35 1,000 MLS/HR (NOMAN CRUZ MD) Allergies Allergies Allergies Coded Allergies Type Severity Reaction Last Updated Verified doxycycline Adverse Reaction Intermediate nausea and vomiting 09/16/14 Yes (NOMAN CRUZ MD) Physical Exam Physical Exam See above Constitutional: Well developed, well nourished, no acute distress, non-toxic appearance. [] HENT: Normocephalic, atraumatic, bilateral external ears normal, oropharynx moist, no oral exudates, nose normal. [] Eyes: PERRLA, EOMI, conjunctiva normal, no discharge. [] Neck: Normal range of motion, no tenderness, supple, no stridor. [] Cardiovascular:Heart rate regular rhythm, no murmur [] Lungs & Thorax: Bilateral breath sounds clear to auscultation [] Abdomen: Bowel sounds normal, soft, THERE IS tenderness TO PALPATION IN LLQ AND SUPRAPUBIC AREA. NO GUARDING,NO REBOUND. no masses, no pulsatile masses. [] Skin: Warm, dry, no erythema, no rash. [] Back: No tenderness, no CVA tenderness. [] Extremities: No tenderness, no cyanosis, no clubbing, ROM intact, no edema. [] Neurologic: Alert and oriented X 3, normal motor function, normal sensory function, no focal deficits noted. [] Psychologic: Affect normal, judgement normal, mood normal. [] (REBECCA CORONA DO) Current Patient Data Vital Signs Vital Signs Date Time Temp Pulse Resp B/P (MAP) Pulse Ox O2 Delivery O2 Flow Rate FiO2 06/07/19 19:14 18 135/62 (86) 95 Room Air 06/07/19 17:15 98.2 67 98.2 (NOMAN CRUZ MD) Lab Values Laboratory Tests Test 06/07/19 17:12 06/07/19 17:40 Urine Collection Type Unknown Urine Color Yellow Urine Clarity Clear Urine pH 6.5 Urine Specific [place] 1.015 Urine Protein Negative mg/dL (NEG-TRACE) Urine Glucose (UA) Negative mg/dL (NEG) Urine Ketones (Stick) Negative mg/dL (NEG) Urine Blood Negative (NEG) Urine Nitrite Negative (NEG) Urine Bilirubin Negative (NEG) Urine Urobilinogen Dipstick 0.2 mg/dL (0.2 mg/dL) Urine Leukocyte Esterase Small (NEG) Urine RBC 0 /HPF (0-2) Urine WBC 5-10 /HPF (0-4) Urine Squamous Epithelial Cells Many /LPF Urine Bacteria Moderate /HPF (0-FEW) White Blood Count 8.3 x10^3/uL (4.0-11.0) Red Blood Count 4.43 x10^6/uL (3.50-5.40) Hemoglobin 13.5 g/dL (12.0-15.5) Hematocrit 39.3 % (36.0-47.0) Mean Corpuscular Volume 89 fL (79-100) Mean Corpuscular Hemoglobin 31 pg (25-35) Mean Corpuscular Hemoglobin Concent 35 g/dL (31-37) Red Cell Distribution Width 12.6 % (11.5-14.5) Platelet Count 238 x10^3/uL (140-400) Neutrophils (%) (Auto) 63 % (31-73) Lymphocytes (%) (Auto) 23 % (24-48) L Monocytes (%) (Auto) 8 % (0-9) Eosinophils (%) (Auto) 6 % (0-3) H Basophils (%) (Auto) 1 % (0-3) Neutrophils # (Auto) 5.2 x10^3/uL (1.8-7.7) Lymphocytes # (Auto) 1.9 x10^3/uL (1.0-4.8) Monocytes # (Auto) 0.6 x10^3/uL (0.0-1.1) Eosinophils # (Auto) 0.5 x10^3/uL (0.0-0.7) Basophils # (Auto) 0.1 x10^3/uL (0.0-0.2) Prothrombin Time 12.7 SEC (11.7-14.0) Prothrombin Time INR 1.0 (0.8-1.1) Activated Partial Thromboplast Time 28 SEC (24-38) Sodium Level 141 mmol/L (136-145) Potassium Level 3.7 mmol/L (3.5-5.1) Chloride Level 105 mmol/L (98-107) Carbon Dioxide Level 31 mmol/L (21-32) Anion Gap 5 (6-14) L Blood Urea Nitrogen 18 mg/dL (7-20) Creatinine 0.9 mg/dL (0.6-1.0) Estimated GFR (Cockcroft-Gault) 62.3 BUN/Creatinine Ratio 20 (6-20) Glucose Level 133 mg/dL (70-99) H Calcium Level 9.2 mg/dL (8.5-10.1) Magnesium Level 1.7 mg/dL (1.8-2.4) L Total Bilirubin 0.5 mg/dL (0.2-1.0) Aspartate Amino Transferase (AST) 29 U/L (15-37) Alanine Aminotransferase (ALT) 34 U/L (14-59) Alkaline Phosphatase 71 U/L (46-116) Total Protein 7.0 g/dL (6.4-8.2) Albumin 3.3 g/dL (3.4-5.0) L Albumin/Globulin Ratio 0.9 (1.0-1.7) L Lipase 202 U/L (73-393) Laboratory Tests 06/07/19 17:40 Laboratory Tests 06/07/19 17:40 (NOMAN CRUZ MD) EKG EKG [] (REBECCA CORONA DO) Radiology/Procedures Radiology/Procedures [] (REBECCA CORONA DO) Radiology/Procedures [facility] [address] [place] [address] IMAGING REPORT Signed PATIENT: GURPREET SERRANO ACCOUNT: [id number] : 1950 LOCATION: ER AGE: 69 SEX: F EXAM STATUS: REG ER ORD. PHYSICIAN: REBECCA CORONA DO REASON: left lower abdominal pain since yesterday PROCEDURE: CT ABD PELV W/ IV CONTRST ONLY Exam: CT abdomen and pelvis with contrast INDICATION: Lower abdominal pain TECHNIQUE: Sequential axial images through the abdomen and pelvis obtained following the administration of 75 mL of Omni 300 IV contrast. Sagittal and coronal reformatted images were reconstructed from the axial data and reviewed. Comparisons: None FINDINGS: Size is normal. No pericardial effusion. Strandy opacities are noted at the dependent portion the lungs likely representing atelectasis. Liver, spleen, pancreas, gallbladder and adrenals are unremarkable. Kidneys demonstrate symmetric enhancement. No perinephric inflammation or hydronephrosis. No renal or ureteral calculi are identified. Bladder is distended and appears thin-walled. Uterus is not enlarged. No abnormal adnexal mass. Large and small bowel are unremarkable. Appendix is normal. No free intra-abdominal air or fluid. No obstruction. Bowel aorta has a normal course and caliber. Abdominal vasculature is patent. No enlarged abdominal lymph nodes are identified. No suspicious osseous lesions or acute fractures. IMPRESSION: No acute process identified within the abdomen or pelvis. Exposure: One or more of the following in the visualized dose reduction techniques were utilized for this examination: 1. Automated exposure control 2. Adjustment of the MA and/or KV according to patient size 3. Use of iterative of reconstructive technique Electronically signed by: Javi Anguiano MD (06/07/2019 6:30 PM) [id number] DICTATED and SIGNED BY: JAVI ANGUIANO MD DATE: 06/07/191829 (NOMAN CRUZ MD) Course & Med Decision Making Course & Med Decision Making Pertinent Labs and Imaging studies reviewed. (See chart for details) She is a 69-year-old female who IS evaluated in the ER today due to lower abdominal pain. Patient is suspected to have diverticulitis. Will order labs work and CT scan of her abdomen and pelvic. Patient's care was turned over to Dr. Noman Cruz at shift change, at 6 pm. Final disposition will be done by Dr. Cruz. (REBECCA CORONA DO) Dragon Disclaimer Dragon Disclaimer This electronic medical record was generated, in whole or in part, using a voice recognition dictation system. (REBECCA CORONA DO) Departure Departure Impression: Primary Impression: Abdominal pain Disposition: 01 HOME, SELF-CARE Condition: IMPROVED Referrals: ERENDIRA FLOR APRN (PCP) Patient Instructions: Abdominal Pain (Nonspecific) Additional Instructions: Recommend follow up with PCP 3-[address] of abdomen and pelvis negative for acute findings Labs reviewed and within normal limits Rx provided for bentyl as needed Rx provided for zofran Return to the ER with worsening symptoms, fever, intractable nausea/vomiting Scripts Dicyclomine Hcl (DICYCLOMINE HCL) 10 Mg Capsule 1 CAP PO TID PRN for PAIN for 5 Days, #15 CAP 11 Refills Prov: NOMAN CRUZ MD 06/07/19 Ondansetron Hcl (ZOFRAN) 4 Mg Tablet 1 TAB PO PRN Q6-8HRS for nausea, #12 TAB Prov: NOMAN CRUZ MD 06/07/19 REBECCA CORONA DO Jun 07, 2019 17:44 NOMAN CRUZ MD Jun 07, 2019 18:08
[2019-06-07 17:47] LABS: BASO # 0.1 x10^3/uL (0.0-0.2); BASO % 1 % (0-3); EOS # 0.5 x10^3/uL (0.0-0.7); EOS % 6 % (0-3); HEMATOCRIT 39.3 % (36.0-47.0); HEMOGLOBIN 13.5 g/dL (12.0-15.5); LYMPH # 1.9 x10^3/uL (1.0-4.8); LYMPH % 23 % (24-48); MEAN CORPUSCULAR HEMOGLOBIN 31 pg (25-35); MEAN CORPUSCULAR HGB CONC 35 g/dL (31-37); MEAN CORPUSCULAR VOLUME 89 fL (79-100); MONO # 0.6 x10^3/uL (0.0-1.1); MONO % 8 % (0-9); NEUT # 5.2 x10^3/uL (1.8-7.7); NEUT % 63 % (31-73); PLATELET COUNT 238 x10^3/uL (140-400); RED BLOOD COUNT 4.43 x10^6/uL (3.50-5.40); RED CELL DISTRIBUTION WIDTH 12.6 % (11.5-14.5); WHITE BLOOD COUNT 8.3 x10^3/uL (4.0-11.0)
[2019-06-07 17:54] LABS: CALCIUM 9.2 mg/dL (8.5-10.1); CREATININE 0.9 mg/dL (0.6-1.0); GFR 62.3; POTASSIUM 3.7 mmol/L (3.5-5.1)
[2019-06-07 17:56] LABS: PROTHROMBIN TIME PATIENT 12.7 SEC (11.7-14.0)
[2019-06-07 18:00] LABS: ALBUMIN 3.3 g/dL (3.4-5.0); ALBUMIN/GLOBULIN RATIO 0.9 (1.0-1.7); MAGNESIUM 1.7 mg/dL (1.8-2.4); TOTAL BILIRUBIN 0.5 mg/dL (0.2-1.0)
[2019-06-07] MEDS ORDERED: CONTRAST GIVEN. MC PRN (18:15)
[2019-06-07] MEDS: IOHEXOL 300 MG/ML 100ML VIAL. IV ONE (18:17)
--- NOTE | 2019-06-07 18:33 | RAD ---
Exam: CT abdomen and pelvis with contrast INDICATION: Lower abdominal pain TECHNIQUE: Sequential axial images through the abdomen and pelvis obtained following the administration of 75 mL of Omni 300 IV contrast. Sagittal and coronal reformatted images were reconstructed from the axial data and reviewed. Comparisons: None FINDINGS: Size is normal. No pericardial effusion. Strandy opacities are noted at the dependent portion the lungs likely representing atelectasis. Liver, spleen, pancreas, gallbladder and adrenals are unremarkable. Kidneys demonstrate symmetric enhancement. No perinephric inflammation or hydronephrosis. No renal or ureteral calculi are identified. Bladder is distended and appears thin-walled. Uterus is not enlarged. No abnormal adnexal mass. Large and small bowel are unremarkable. Appendix is normal. No free intra-abdominal air or fluid. No obstruction. Bowel aorta has a normal course and caliber. Abdominal vasculature is patent. No enlarged abdominal lymph nodes are identified. No suspicious osseous lesions or acute fractures. IMPRESSION: No acute process identified within the abdomen or pelvis. Exposure: One or more of the following in the visualized dose reduction techniques were utilized for this examination: 1. Automated exposure control 2. Adjustment of the MA and/or KV according to patient size 3. Use of iterative of reconstructive technique Electronically signed by: Javi Campos MD (06/07/2019 6:30 PM) [id number]
[2019-06-07] MEDS: ONDANSETRON PF 4 MG/2 ML VIAL. IVP ONE (18:35)
[2019-06-07] MEDS: IV NORMAL SALINE 1000ML BAG 1,000 ML IV ONE (18:35)
[2019-06-07] MEDS: fentaNYL PF VIAL 100 MCG/2 ML VIAL IVP ONE (18:36)
[2019-06-07] MEDS ORDERED: DICY10CA3 PO (18:42)
[2019-06-07] MEDS ORDERED: ONDA4TAB7 PO (18:42)
[2019-06-07 19:14] VITALS: BP 135/62
== END 2019-06-07 19:19 | disposition home or self-care (01) ==
LOC: ER 16:43
DX: R10.32 Left lower quadrant pain (principal); E11.9 Type 2 diabetes mellitus without complications; E78.00 Pure hypercholesterolemia, unspecified; I11.9 Hypertensive heart disease without heart failure; I25.10 Atherosclerotic heart disease of native coronary artery without angina pectoris; Z95.1 Presence of aortocoronary bypass graft; Z98.890 Other specified postprocedural states; F17.200 Nicotine dependence, unspecified, uncomplicated; Z88.1 Allergy status to other antibiotic agents
CPT/HCPCS: 36415; 74177; 80053; 81001; 83690; 83735; 85025; 85610; 85730; 87086; 96374; 96375; 99285; J2405; J3010; J7030; Q9967

== ENCOUNTER 2019-10-12 12:19 | Emergency (ER) | payer MEDICARE ==
[~2019-10-12] VITALS: Ht 162.6 cm; Wt 80.0 kg
[~2019-10-12 12:19] MED LIST changes: +DICY10CA3 PO
[2019-10-12] MEDS ORDERED: IV NORMAL SALINE 1000ML BAG 1,000 ML IV ONE (12:30)
[2019-10-12] MEDS ORDERED: ONDANSETRON PF 4 MG/2 ML VIAL. IVP ONE (12:30)
[2019-10-12] MEDS ORDERED: FAMOTIDINE 20 MG/2 ML VIAL IVP ONE (12:30)
[2019-10-12 12:42] LABS: BILIRUBIN,URINE NEGATIVE (NEG); CLARITY,URINE CLEAR; COLOR,URINE YELLOW; NITRITE,URINE NEGATIVE (NEG); PH,URINE 5.5 (<5.0-8.0); PROTEIN,URINE 30 mg/dL (NEG-TRACE); UROBILINOGEN,URINE 0.2 mg/dL (0.2 mg/dL)
[2019-10-12 12:46] LABS: BACTERIA,URINE MANY /HPF (0-FEW); SQUAMOUS EPITHELIAL CELL,UR MANY /LPF
[2019-10-12 12:47] LABS: RBC,URINE OCC /HPF (0-2)
--- NOTE | 2019-10-12 12:55 | PHYS DOC ---
Past Medical History Past Medical History: Anxiety, CAD, Diabetes-Type II, High Cholesterol, Heart Disease, Hypertension, Other Additional Past Medical Histor: INSOMNIA Past Surgical History: Coronary Bypass Surgery Additional Past Surgical Histo: CABG x 4, back surgery Smoking Status: Current Every Day Smoker Alcohol Use: None Drug Use: None General Adult EDM: Chief Complaint: OTHER COMPLAINTS HPI: HPI: Patient is a 69 year old female who presents with report of feeling "woozy ". Patient reports she feels she is dehydrated. Patient is employed as a [employer] and has been standing out in the sun. Reports that has been ongoing for the past week. Reports nausea. Denies vomiting. Denies fever or chills. Denies chest pain or palpitations. Denies known sick contacts. Review of Systems: Review of Systems: Constitutional: Denies fever or chills; reports generalized weakness Eyes: Denies redness or eye pain HENT: Denies nasal congestion or sore throat Respiratory: Denies cough or shortness of breath Cardiovascular: Denies chest pain or palpitations GI: Denies abdominal pain; reports nausea : Reports dysuria; denies hematuria Musculoskeletal: Denies back pain or joint pain Integument: Denies rash or skin lesions Neurologic: Denies headache, focal weakness or sensory changes; reports generalized weakness Complete systems were reviewed and found to be within normal limits, except as documented in this note. Current Medications: Current Medications Medications (Trade) Dose Ordered Sig/[facility] Start Time Stop Time Status Last Admin Dose Admin Famotidine (Pepcid Vial) 20 mg 1X ONCE 10/12/19 12:30 10/12/19 12:31 DC Ondansetron HCl (Zofran) 4 mg 1X ONCE 10/12/19 12:30 10/12/19 12:31 DC Sodium Chloride 1,000 ml @ 1,000 mls/hr 1X ONCE 10/12/19 12:30 10/12/19 13:29 Allergies: Allergies: Allergies Coded Allergies Type Severity Reaction Last Updated Verified doxycycline Adverse Reaction Intermediate nausea and vomiting 09/16/14 Yes Physical Exam: PE: Constitutional: Well developed, well nourished, no acute distress, non-toxic appearance HENT: Normocephalic, atraumatic, oropharynx dry Eyes: PERRL, EOMI, conjunctiva normal, no discharge, no nystagmus Neck: Normal range of motion, no tenderness, supple Cardiovascular: Heart rate normal, regular rhythm Lungs & Thorax: Bilateral breath sounds clear to auscultation, no wheezing Abdomen: Soft, no tenderness Skin: Warm, dry, no erythema, no rash Back: No tenderness, no CVA tenderness Extremities: No tenderness, ROM intact, no edema Neurologic: Alert and oriented X 3, normal motor function, normal sensory function, no focal deficits noted Psychologic: Affect normal, judgment normal Current Patient Data: Labs: Laboratory Tests Test 10/12/19 12:30 Urine Collection Type Unknown Urine Color Yellow Urine Clarity Clear Urine pH 5.5 (<5.0-8.0) Urine Specific [place] 1.025 (1.000-1.030) Urine Protein 30 mg/dL (NEG-TRACE) Urine Glucose (UA) >=1000 mg/dL (NEG) Urine Ketones (Stick) Negative mg/dL (NEG) Urine Blood Negative (NEG) Urine Nitrite Negative (NEG) Urine Bilirubin Negative (NEG) Urine Urobilinogen Dipstick 0.2 mg/dL (0.2 mg/dL) Urine Leukocyte Esterase Small (NEG) Urine RBC Occ /HPF (0-2) Urine WBC 5-10 /HPF (0-4) Urine Squamous Epithelial Cells Many /LPF Urine Bacteria Many /HPF (0-FEW) Urine Mucus Mod /LPF EKG: EKG: @ 1245 NSR at 74bpm, NO ST elevation, QRS 92ms, QT/QTc 410/456ms Radiology/Procedures: Radiology/Procedures: [] Course & Med Decision Making: Course & Med Decision Making Pertinent Lab studies reviewed. (See chart for details) Patient presents with report of concern of feeling "woozy "and "dehydrated ". Patient neurologically intact. Patient does appear clinically dehydrated. 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 Vital signs stable. EKG stable. Labs obtained and posted to chart. Initial troponin within normal limits. Hypomagnesemia appreciated. Magnesium replacement provided. Patient also noted to have UA with questionable signs of infection versus contamination. Patient does report some dysuria. Empiric antibiotic therefore provided. Await urine culture. Patient stable for discharge with outpatient follow-up with PCP. Discussed findings and plan with patient and family, who acknowledge understanding and agreement. Rayshawn Disclaimer: Rayshawn Disclaimer: This electronic medical record was generated, in whole or in part, using a voice recognition dictation system. Departure Departure Impression: Primary Impression: Dehydration Additional Impressions: Hypomagnesemia Urinary tract infection Qualified Codes: N30.00 - Acute cystitis without hematuria Disposition: HOME, SELF-CARE Condition: STABLE Referrals: ERENDIRA FLOR APRN (PCP) Patient Instructions: Dehydration, Adult, [id number], Heat-Related Illness, Hypomagnesemia, Urinary Tract Infection, [id number] Scripts Cephalexin (KEFLEX) 500 Mg Capsule 500 MG PO TID for 7 Days, #21 CAP Prov: MARGUERITE STOUT DO 10/12/19 Ondansetron (ONDANSETRON ODT) 4 Mg Tab.rapdis 1 TAB PO PRN Q6-8HRS PRN for NAUSEA, #16 TAB Prov: MARGUERITE STOUT DO 10/12/19 Justicifation of Admission Dx: Justifications for Admission: Justification of Admission Dx: N/A MARGUERITE STOUT DO Oct 12, 2019 12:55
[2019-10-12 13:04] LABS: BASO # 0.1 x10^3/uL (0.0-0.2); BASO % 1 % (0-3); EOS # 0.4 x10^3/uL (0.0-0.7); EOS % 4 % (0-3); HEMOGLOBIN 13.9 g/dL (12.0-15.5); LYMPH # 1.5 x10^3/uL (1.0-4.8); LYMPH % 15 % (24-48); MEAN CORPUSCULAR HEMOGLOBIN 31 pg (25-35); MEAN CORPUSCULAR HGB CONC 36 g/dL (31-37); MEAN CORPUSCULAR VOLUME 87 fL (79-100); MONO # 0.6 x10^3/uL (0.0-1.1); MONO % 6 % (0-9); NEUT # 7.2 x10^3/uL (1.8-7.7); NEUT % 74 % (31-73); PLATELET COUNT 224 x10^3/uL (140-400); RED BLOOD COUNT 4.49 x10^6/uL (3.50-5.40); RED CELL DISTRIBUTION WIDTH 12.6 % (11.5-14.5); WHITE BLOOD COUNT 9.8 x10^3/uL (4.0-11.0)
[2019-10-12 13:13] LABS: PROTHROMBIN TIME PATIENT 12.3 SEC (11.7-14.0)
[2019-10-12 13:14] LABS: CALCIUM 8.8 mg/dL (8.5-10.1); GFR 55.1; POTASSIUM 3.9 mmol/L (3.5-5.1)
[2019-10-12 13:20] LABS: ALBUMIN 3.1 g/dL (3.4-5.0); ALBUMIN/GLOBULIN RATIO 0.9 (1.0-1.7); MAGNESIUM 1.5 mg/dL (1.8-2.4); TOTAL BILIRUBIN 0.5 mg/dL (0.2-1.0); TOTAL PROTEIN 6.7 g/dL (6.4-8.2)
[2019-10-12] MEDS ORDERED: MAGNESIUM CHLORIDE ER 64 MG TABLET.ER PO ONE (13:45)
[2019-10-12] MEDS ORDERED: CEPH-264 PO (13:46)
[2019-10-12] MEDS ORDERED: ONDA4TAB12 PO (13:46)
[2019-10-12 13:59] VITALS: BP 147/67
[2019-10-12] MEDS ORDERED: cefTRIAXone IV Push 1 GM VIAL. IVP ONE (14:15)
--- NOTE | 2019-10-12 14:27 | EKG ---
[facility] [address] [place] [address] Test Date: 2019-10-12 Test Time: 12:45:42 Pat Name: UGRPREET SERRANO Department: Room: Gender: F [employer]: : 1950 Requested By: MARGUERITE STOUT Order Number: [id number] Reading MD: Raj Syed MD Measurements Intervals [place] Rate: 74 P: 49 NC: 154 QRS: 74 QRSD: 92 T: 7 QT: 410 QTc: 456 Interpretive Statements SINUS RHYTHM NON-SPECIFIC ST/T CHANGES Electronically Signed On 10-13-2019 9:51:11 CDT by Raj Syed MD
== END 2019-10-12 14:06 | disposition home or self-care (01) ==
LOC: ER 12:19
DX: N30.00 Acute cystitis without hematuria (principal); E86.0 Dehydration; E83.42 Hypomagnesemia; R11.0 Nausea; R53.1 Weakness; F41.9 Anxiety disorder, unspecified; I25.10 Atherosclerotic heart disease of native coronary artery without angina pectoris; I11.9 Hypertensive heart disease without heart failure; E11.9 Type 2 diabetes mellitus without complications; E78.00 Pure hypercholesterolemia, unspecified; F17.200 Nicotine dependence, unspecified, uncomplicated; Z98.890 Other specified postprocedural states
CPT/HCPCS: 36415; 80053; 81001; 82553; 83690; 83735; 84484; 85025; 85610; 85730; 87086; 93005; 96361; 96374; 96375; 99284; J0696; J2405; J3490; J7030

== ENCOUNTER 2019-12-04 14:44 | Inpatient (IN) | payer MEDICARE ==
[~2019-12-04] VITALS: Ht 162.6 cm; Wt 79.1 kg
[~2019-12-04 14:44] MED LIST changes: +CEPH-264 PO; +ONDA4TAB12 PO
[2019-12-04] MEDS ORDERED: IV NORMAL SALINE 1000ML BAG 1,000 ML IV ONE (15:30)
[2019-12-04 15:47] LABS: BILIRUBIN,URINE MODERATE (NEG); CLARITY,URINE CLEAR; COLOR,URINE YELLOW; NITRITE,URINE NEGATIVE (NEG); PROTEIN,URINE 30 mg/dL (NEG-TRACE); UROBILINOGEN,URINE 0.2 mg/dL (0.2 mg/dL)
[2019-12-04 15:56] LABS: BASE EXCESS ABG -9 mmol/L (-3-3); HCO3 ABG 15 mmol/L (21-28); PCO2 ABG 27 mmHg (35-46); PO2 ABG 91 mmHg (65-108); SAT O2 ABG 97 % (92-99)
[2019-12-04 15:57] LABS: FIO2 ABG 21
[2019-12-04 16:01] LABS: HYALINE CASTS, URINE MODERATE /HPF; SQUAMOUS EPITHELIAL CELL,UR MANY /LPF
[2019-12-04 16:02] LABS: BACTERIA,URINE 0 /HPF (0-FEW); YEAST,URINE PRESENT /HPF
[2019-12-04 16:15] LABS: BASO # 0.1 x10^3/uL (0.0-0.2); BASO % 1 % (0-3); EOS # 0.3 x10^3/uL (0.0-0.7); EOS % 4 % (0-3); HEMATOCRIT 39.9 % (36.0-47.0); HEMOGLOBIN 13.8 g/dL (12.0-15.5); LYMPH # 1.6 x10^3/uL (1.0-4.8); LYMPH % 23 % (24-48); MEAN CORPUSCULAR HEMOGLOBIN 30 pg (25-35); MEAN CORPUSCULAR HGB CONC 35 g/dL (31-37); MEAN CORPUSCULAR VOLUME 88 fL (79-100); MONO # 0.6 x10^3/uL (0.0-1.1); MONO % 8 % (0-9); NEUT # 4.5 x10^3/uL (1.8-7.7); NEUT % 64 % (31-73); PLATELET COUNT 220 x10^3/uL (140-400); RED BLOOD COUNT 4.54 x10^6/uL (3.50-5.40); RED CELL DISTRIBUTION WIDTH 13.3 % (11.5-14.5)
[2019-12-04 16:26] LABS: CALCIUM 8.8 mg/dL (8.5-10.1); CREATININE 0.9 mg/dL (0.6-1.0); GFR 62.3
[2019-12-04 16:32] LABS: ALBUMIN 3.1 g/dL (3.4-5.0); ALBUMIN/GLOBULIN RATIO 0.8 (1.0-1.7); TOTAL BILIRUBIN 0.5 mg/dL (0.2-1.0); TOTAL PROTEIN 6.8 g/dL (6.4-8.2)
--- NOTE | 2019-12-04 17:22 | PHYS DOC ---
Past Medical History Past Medical History: Anxiety, CAD, Diabetes-Type II, High Cholesterol, Heart Disease, Hypertension, Other Additional Past Medical Histor: INSOMNIA Past Surgical History: Coronary Bypass Surgery Additional Past Surgical Histo: CABG x 4, back surgery Smoking Status: Current Every Day Smoker Alcohol Use: None Drug Use: None General Adult EDM: Chief Complaint: HYPERGLYCEMIA HPI: HPI: Patient is a 69 year old female, accompanied by her daughter, who presents to the emergency department with reports of a blood sugar of 532 at home earlier this afternoon. She denies polyphagia, polydipsia, or polyuria. Patient states that she is currently taking Lantus and Solostar insulins, she is supposed to take Januvia but cannot afford it so she stopped taking the medication. She reports that she has been taking Keflex for UTI diagnosed by her primary care doctor. She currently denies any dysuria, increased urinary frequency, or hem aturia. She denies any confusion, weakness, nausea, vomiting, diarrhea, abdominal pain, chest pain, shortness of breath, palpitations, cough, fever, body aches, or fatigue. She currently denies any pain or complaints other than elevated blood sugar. Review of Systems: Review of Systems: Constitutional: Denies fever or chills. [] Eyes: Denies change in visual acuity. [] HENT: Denies nasal congestion or sore throat. [] Respiratory: Denies cough or shortness of breath. [] Cardiovascular: Denies chest pain or edema. [] GI: Denies abdominal pain, nausea, vomiting, bloody stools or diarrhea. [] : Denies dysuria. [] Musculoskeletal: Denies back pain or joint pain. [] Integument: Denies rash. [] Neurologic: Denies headache, focal weakness or sensory changes. [] Endocrine: See HPI Lymphatic: Denies swollen glands. [] Psychiatric: Denies depression or anxiety. [] Heart Score: Risk Factors: Risk Factors: DM, Current or recent (<one month) smoker, HTN, HLP, family history of CAD, obesity. Risk Scores: Score 0 - 3: 2.5% MACE over next 6 weeks - Discharge Home Score 4 - 6: 20.3% MACE over next 6 weeks - Admit for Clinical Observation Score 7 - 10: 72.7% MACE over next 6 weeks - Early Invasive Strategies Current Medications: Current Medications Medications (Trade) Dose Ordered Sig/Karina Start Time Stop Time Status Last Admin Dose Admin Sodium Chloride 1,000 ml @ 1,000 mls/hr 1X ONCE 12/04/19 15:30 12/04/19 16:29 DC 12/04/19 16:19 1,000 MLS/HR Allergies: Allergies: Allergies Coded Allergies Type Severity Reaction Last Updated Verified doxycycline Adverse Reaction Intermediate nausea and vomiting 09/16/14 Yes Physical Exam: PE: Constitutional: Well developed, well nourished, no acute distress, non-toxic appearance. [] HENT: Normocephalic, atraumatic, bilateral external ears normal, dry mucous membranes, nose normal. [] Eyes: PERRLA, EOMI, conjunctiva normal, no discharge. [] Neck: Normal range of motion, no stridor. [] Cardiovascular:Heart rate regular rhythm Lungs & Thorax: Respirations even and unlabored, no retractions, no respiratory distress Abdomen: soft, no tenderness Skin: Warm, dry, no erythema, no rash. [] Extremities: No cyanosis, ROM intact, no edema. [] Neurologic: Alert and oriented X 3, no focal deficits noted. [] Psychologic: Affect normal, judgement normal, mood normal. [] Current Patient Data: Labs: Laboratory Tests Test 12/04/19 15:30 12/04/19 15:53 12/04/19 15:55 12/04/19 16:07 Urine Collection Type Unknown Urine Color Yellow Urine Clarity Clear Urine pH 5.0 (<5.0-8.0) Urine Specific [place] >=1.030 (1.000-1.030) Urine Protein 30 mg/dL (NEG-TRACE) Urine Glucose (UA) >=1000 mg/dL (NEG) Urine Ketones (Stick) >=80 mg/dL (NEG) Urine Blood Negative (NEG) Urine Nitrite Negative (NEG) Urine Bilirubin Moderate (NEG) Urine Urobilinogen Dipstick 0.2 mg/dL (0.2 mg/dL) Urine Leukocyte Esterase Negative (NEG) Urine RBC 1-2 /HPF (0-2) Urine WBC 11-20 /HPF (0-4) Urine Squamous Epithelial Cells Many /LPF Urine Bacteria 0 /HPF (0-FEW) Urine Hyaline Casts Moderate /HPF Urine Mucus Marked /LPF Urine Yeast Present /HPF Glucose (Fingerstick) 325 mg/dL (70-99) H O2 Saturation 97 % (92-99) Arterial Blood pH 7.35 (7.35-7.45) Arterial Blood pCO2 at Patient Temp 27 mmHg (35-46) L Arterial Blood pO2 at Patient Temp 91 mmHg (65-108) Arterial Blood HCO3 15 mmol/L (21-28) L Arterial Blood Base Excess -9 mmol/L (-3-3) L FiO2 21 White Blood Count 7.0 x10^3/uL (4.0-11.0) Red Blood Count 4.54 x10^6/uL (3.50-5.40) Hemoglobin 13.8 g/dL (12.0-15.5) Hematocrit 39.9 % (36.0-47.0) Mean Corpuscular Volume 88 fL (79-100) Mean Corpuscular Hemoglobin 30 pg (25-35) Mean Corpuscular Hemoglobin Concent 35 g/dL (31-37) Red Cell Distribution Width 13.3 % (11.5-14.5) Platelet Count 220 x10^3/uL (140-400) Neutrophils (%) (Auto) 64 % (31-73) Lymphocytes (%) (Auto) 23 % (24-48) L Monocytes (%) (Auto) 8 % (0-9) Eosinophils (%) (Auto) 4 % (0-3) H Basophils (%) (Auto) 1 % (0-3) Neutrophils # (Auto) 4.5 x10^3/uL (1.8-7.7) Lymphocytes # (Auto) 1.6 x10^3/uL (1.0-4.8) Monocytes # (Auto) 0.6 x10^3/uL (0.0-1.1) Eosinophils # (Auto) 0.3 x10^3/uL (0.0-0.7) Basophils # (Auto) 0.1 x10^3/uL (0.0-0.2) Sodium Level 135 mmol/L (136-145) L Potassium Level 4.0 mmol/L (3.5-5.1) Chloride Level 102 mmol/L (98-107) Carbon Dioxide Level 19 mmol/L (21-32) L Anion Gap 14 (6-14) Blood Urea Nitrogen 13 mg/dL (7-20) Creatinine 0.9 mg/dL (0.6-1.0) Estimated GFR (Cockcroft-Gault) 62.3 BUN/Creatinine Ratio 14 (6-20) Glucose Level 308 mg/dL (70-99) H Calcium Level 8.8 mg/dL (8.5-10.1) Total Bilirubin 0.5 mg/dL (0.2-1.0) Aspartate Amino Transferase (AST) 18 U/L (15-37) Alanine Aminotransferase (ALT) 25 U/L (14-59) Alkaline Phosphatase 61 U/L (46-116) Total Protein 6.8 g/dL (6.4-8.2) Albumin 3.1 g/dL (3.4-5.0) L Albumin/Globulin Ratio 0.8 (1.0-1.7) L Acetone Level Sm pos (NEG) Laboratory Tests 12/04/19 16:07 Laboratory Tests 12/04/19 16:07 Vital Signs: Vital Signs Date Time Temp Pulse Resp B/P (MAP) Pulse Ox O2 Delivery O2 Flow Rate FiO2 12/04/19 15:43 Room Air 12/04/19 15:35 98.2 92 16 131/76 (94) 99 98.2 EKG: EKG: [] Radiology/Procedures: Radiology/Procedures: [] Course & Med Decision Making: Course & Med Decision Making Pertinent Labs and Imaging studies reviewed. (See chart for details) 69-year-old female presents to the emergency department with reports of blood sugar of 532 at home. Work-up includes labs, IV fluids, and insulin. CBC is unremarkable; CMP reveals an initial blood glucose of 308, carbon dioxide of 19, normal anion gap, corrected sodium of 138; urinalysis reveals greater than 80 ketones, greater than 1000 glucose, 11-20 white blood cells 0 bacteria many squamous cells; acetone level small positive; ABG revealed a pH of 7.346, O2 sat of 97%, bicarb of 15 Patient was given 1 L of normal saline, 4 units of regular insulin, and a gram of IV Rocephin in the emergency department. [id number] with Dr. Hanson who is the admitting physician, and care was assumed following discussion of patient. Will admit patient for diabetic ketoacidosis and urinary tract infection. Will order normal saline, IV antibiotics, and ins ulin for this patient as requested by Dr. Hanson Patient's vital signs stable. Patient remains afebrile, appears nontoxic, respirations even and unlabored. Patient will be admitted to the [facility] floor. Silvio blackburn's case and plan of care also discussed with Dr. Hendrix [] Rayshawn Disclaimer: Rayshawn Disclaimer: This electronic medical record was generated, in whole or in part, using a voice recognition dictation system. Departure Departure Impression: Primary Impression: DKA (diabetic ketoacidoses) Qualified Codes: E11.10 - Type 2 diabetes mellitus with ketoacidosis without coma Additional Impression: UTI (urinary tract infection) Qualified Codes: N39.0 - Urinary tract infection, site not specified Disposition: ADMITTED INPATIENT Admitting Physician: DENNIS SANTO) Condition: STABLE Referrals: JAYDE BULLOCK MD (PCP) Justicifation of Admission Dx: Justifications for Admission: Justification of Admission Dx: Yes DKA: DKA ANTONELLA MENDOZA [employer]ER Dec 04, 2019 17:22
[2019-12-04] MEDS ORDERED: cefTRIAXone IV Push 1 GM VIAL. IVP ONE (17:30)
[2019-12-04] MEDS ORDERED: INSULIN REGULAR 100 UNIT/ML 3ML VIAL. IV ONE (17:30)
--- NOTE | 2019-12-04 18:27 | SSS ---
ADMIT DATE: 12/04/2019 CHIEF COMPLAINT: Elevated glucose. HISTORY OF PRESENT ILLNESS: The patient is a pleasant 69-year-old female who is on insulin for her diabetes. She presents with hyperglycemia, glucose is about 323. Her ketones are greater than a 1000 in her urine. She has a slight anion gap metabolic acidosis. I discussed the case with the ER physician and the nurse practitioner. We are going to admit the patient, give her fluids, insulin and we are also giving her some IV antibiotics because she has a slight UTI. PAST MEDICAL HISTORY: Diabetes, hypertension, hyperlipidemia, abdominal cramps, chronic pain, arthritis, anxiety, hypertension, insomnia, constipation. ALLERGIES: DOXYCYCLINE. FAMILY HISTORY: Diabetes. SOCIAL HISTORY: She works at [employer] She does not drink, smoke or take drugs. MEDICATIONS: Reviewed, please refer to the MRAD. REVIEW OF SYSTEMS: GENERAL: No history of weight change, weakness or fevers. SKIN: No bruising, hair changes or rashes. EYES: No blurred, double or loss of vision. NOSE AND THROAT: No history of nosebleeds, hoarseness or sore throat. HEART: No history of palpitations, chest pain or shortness of breath on exertion. LUNGS: Denies cough, hemoptysis, wheezing or shortness of breath. GASTROINTESTINAL: Denies changes in appetite, nausea, vomiting, diarrhea or constipation. GENITOURINARY: No history of frequency, urgency, hesitancy or nocturia. NEUROLOGIC: Denies history of numbness, tingling, tremor or weakness. PSYCHIATRIC: No history of panic, anxiety or depression. ENDOCRINE: No history of heat or cold intolerance, polyuria or polydipsia. EXTREMITIES: Denies muscle weakness, joint pain, pain on walking or stiffness. PHYSICAL EXAMINATION: VITALS: Within normal limits and are stable. GENERAL: No apparent distress. Alert and oriented. HEENT: Normal cephalic atraumatic, external auditory canals are patent EYES: Extraocular muscles are intact, pupils are equally round and reactive to light and accommodation MUSCULOSKELETAL: Well developed, well nourished, good range of motion ENDOCRINE: No thyromegaly was palpated LYMPHATICS: No cervical chain or axillary nodes were noted HEMATOPOIETIC: No bruising NECK: Supple, no JVD, no thyromegaly was noted. LUNGS: Clear to auscultation in all lung lara without rhonchi or wheezing. HEART: RRR, S1, S2 present. Peripheral pulses intact, no obvious murmurs were noted. ABDOMEN: Soft, nontender. Positive bowel sounds no organomegaly, normal bowel sounds. EXTREMITIES: Without any cyanosis, clubbing, or edema. Pedal pulses intact, Homans sign is negative. NEUROLOGIC: Normal speech, normal tone. A & O x3, moves all extremities, no obvious focal deficits. PSYCHIATRIC: Normal affect, normal mood. Stable. SKIN: No ulcerations or rashes, good skin turgor, no jaundice. VASCULAR: Good capillary refill, neurovascular bundle appears to be intact. ASSESSMENT AND PLAN: Mild diabetic ketoacidosis. We are going to admit the patient with IV fluids, insulin and she also has a slight urinary tract infection. We will give her IV antibiotics, home meds, DVT prophylaxis. Full code. NEO MADDOX DO DR: JAMAR/tess JOB#: [id number] / [id number]
[2019-12-04] MEDS: IV NORMAL SALINE 1000ML BAG 1,000 ML IV SCH (20:08)
[2019-12-04] MEDS ORDERED: DEXTROSE 50% 25 GM / 50ML DISP.SYRIN. IV PRN (22:00)
[2019-12-04] MEDS: INSULIN LISPRO 300 UNITS/3 ML VIAL. SQ SCH (22:11)
[2019-12-04 23:00] VITALS: BP 115/53
[2019-12-04] MEDS ORDERED: traZODone 50 MG TABLET. PO PRN (23:00)
[2019-12-04] MEDS: INSULIN GLARGINE SYRINGE. SQ SCH (23:45)
[2019-12-05 03:00] VITALS: BP 122/58
[2019-12-05] MEDS: INSULIN LISPRO 300 UNITS/3 ML VIAL. SQ SCH ×6 (04:00→20:00)
[2019-12-05 05:04] LABS: CALCIUM 8.4 mg/dL (8.5-10.1); CREATININE 0.6 mg/dL (0.6-1.0); GFR 99.4; POTASSIUM 3.4 mmol/L (3.5-5.1)
[2019-12-05] MEDS: IV NORMAL SALINE 1000ML BAG 1,000 ML IV SCH ×2 (05:10→09:16)
[2019-12-05 07:00] VITALS: BP 115/54
[2019-12-05 11:00] VITALS: BP 127/58
--- NOTE | 2019-12-05 12:05 | PDOC ---
PROGRESS NOTES Date of Service: DATE: 12/05/19 TIME: 12:01 Chief Complaint Chief Complaint ASSESSMENT AND PLAN: diabetic ketoacidosis. hypokalemia admit IV fluids, insulin possible urinary tract infection. IV antibiotics, home meds, DVT prophylaxis. Full code urine culture replace k . Vitals Vitals Vital Signs Date Time Temp Pulse Resp B/P (MAP) Pulse Ox O2 Delivery O2 Flow Rate FiO2 12/05/19 11:00 98.2 76 16 127/58 (81) 98 Room Air 98.2 Physical Exam Physical Exam light and accommodation MUSCULOSKELETAL: Well developed, well nourished, good range of motion ENDOCRINE: No thyromegaly was palpated LYMPHATICS: No cervical chain or axillary nodes were noted HEMATOPOIETIC: No bruising NECK: Supple, no JVD, no thyromegaly was noted. LUNGS: Clear to auscultation in all lung lara without rhonchi or wheezing. HEART: RRR, S1, S2 present. Peripheral pulses intact, no obvious murmurs were noted. ABDOMEN: Soft, nontender. Positive bowel sounds no organomegaly, normal bowel sounds. EXTREMITIES: Without any cyanosis, clubbing, or edema. Pedal pulses intact, Homans sign is negative. NEUROLOGIC: Normal speech, normal tone. A & O x3, moves all extremities, no obvious focal deficits. PSYCHIATRIC: Normal affect, normal mood. Stable. SKIN: No ulcerations or rashes, good skin turgor, no jaundice. VASCULAR: Good capillary refill, neurovascular bundle appears to be intact. General: Alert, Oriented X3, Cooperative, No acute distress Heart: No murmurs Lungs: Clear Abdomen: Soft Extremities: No cyanosis Labs LABS Laboratory Tests Test 12/04/19 15:30 12/04/19 15:53 12/04/19 15:55 12/04/19 16:07 Urine Collection Type Unknown Urine Color Yellow Urine Clarity Clear Urine pH 5.0 (<5.0-8.0) Urine Specific [place] >=1.030 (1.000-1.030) Urine Protein 30 mg/dL (NEG-TRACE) Urine Glucose (UA) >=1000 mg/dL (NEG) Urine Ketones (Stick) >=80 mg/dL (NEG) Urine Blood Negative (NEG) Urine Nitrite Negative (NEG) Urine Bilirubin Moderate (NEG) Urine Urobilinogen Dipstick 0.2 mg/dL (0.2 mg/dL) Urine Leukocyte Esterase Negative (NEG) Urine RBC 1-2 /HPF (0-2) Urine WBC 11-20 /HPF (0-4) Urine Squamous Epithelial Cells Many /LPF Urine Bacteria 0 /HPF (0-FEW) Urine Hyaline Casts Moderate /HPF Urine Mucus Marked /LPF Urine Yeast Present /HPF Glucose (Fingerstick) 325 mg/dL (70-99) O2 Saturation 97 % (92-99) Arterial Blood pH 7.35 (7.35-7.45) Arterial Blood pCO2 at Patient Temp 27 mmHg (35-46) Arterial Blood pO2 at Patient Temp 91 mmHg (65-108) Arterial Blood HCO3 15 mmol/L (21-28) Arterial Blood Base Excess -9 mmol/L (-3-3) FiO2 21 White Blood Count 7.0 x10^3/uL (4.0-11.0) Red Blood Count 4.54 x10^6/uL (3.50-5.40) Hemoglobin 13.8 g/dL (12.0-15.5) Hematocrit 39.9 % (36.0-47.0) Mean Corpuscular Volume 88 fL (79-100) Mean Corpuscular Hemoglobin 30 pg (25-35) Mean Corpuscular Hemoglobin Concent 35 g/dL (31-37) Red Cell Distribution Width 13.3 % (11.5-14.5) Platelet Count 220 x10^3/uL (140-400) Neutrophils (%) (Auto) 64 % (31-73) Lymphocytes (%) (Auto) 23 % (24-48) Monocytes (%) (Auto) 8 % (0-9) Eosinophils (%) (Auto) 4 % (0-3) Basophils (%) (Auto) 1 % (0-3) Neutrophils # (Auto) 4.5 x10^3/uL (1.8-7.7) Lymphocytes # (Auto) 1.6 x10^3/uL (1.0-4.8) Monocytes # (Auto) 0.6 x10^3/uL (0.0-1.1) Eosinophils # (Auto) 0.3 x10^3/uL (0.0-0.7) Basophils # (Auto) 0.1 x10^3/uL (0.0-0.2) Sodium Level 135 mmol/L (136-145) Potassium Level 4.0 mmol/L (3.5-5.1) Chloride Level 102 mmol/L (98-107) Carbon Dioxide Level 19 mmol/L (21-32) Anion Gap 14 (6-14) Blood Urea Nitrogen 13 mg/dL (7-20) Creatinine 0.9 mg/dL (0.6-1.0) Estimated GFR (Cockcroft-Gault) 62.3 BUN/Creatinine Ratio 14 (6-20) Glucose Level 308 mg/dL (70-99) Calcium Level 8.8 mg/dL (8.5-10.1) Total Bilirubin 0.5 mg/dL (0.2-1.0) Aspartate Amino Transf (AST/SGOT) 18 U/L (15-37) Alanine Aminotransferase (ALT/SGPT) 25 U/L (14-59) Alkaline Phosphatase 61 U/L (46-116) Total Protein 6.8 g/dL (6.4-8.2) Albumin 3.1 g/dL (3.4-5.0) Albumin/Globulin Ratio 0.8 (1.0-1.7) Acetone Level Sm pos (NEG) Test 12/04/19 21:03 12/05/19 01:27 12/05/19 04:15 12/05/19 05:51 Glucose (Fingerstick) 224 mg/dL (70-99) 198 mg/dL (70-99) 117 mg/dL (70-99) Sodium Level 141 mmol/L (136-145) Potassium Level 3.4 mmol/L (3.5-5.1) Chloride Level 109 mmol/L (98-107) Carbon Dioxide Level 20 mmol/L (21-32) Anion Gap 12 (6-14) Blood Urea Nitrogen 10 mg/dL (7-20) Creatinine 0.6 mg/dL (0.6-1.0) Estimated GFR (Cockcroft-Gault) 99.4 Glucose Level 162 mg/dL (70-99) Calcium Level 8.4 mg/dL (8.5-10.1) Test 12/05/19 08:22 12/05/19 11:46 Glucose (Fingerstick) 97 mg/dL (70-99) 156 mg/dL (70-99) Assessment and Plan Assessmemt and Plan Problems Medical Problems: (1) DKA (diabetic ketoacidoses) Status: Acute (2) UTI (urinary tract infection) Status: Acute Comment Review of Relevant I have reviewed the following items william (where applicable) has been applied. Labs Laboratory Tests Test 12/04/19 15:30 12/04/19 15:53 12/04/19 15:55 12/04/19 16:07 Urine Collection Type Unknown Urine Color Yellow Urine Clarity Clear Urine pH 5.0 (<5.0-8.0) Urine Specific [place] >=1.030 (1.000-1.030) Urine Protein 30 mg/dL (NEG-TRACE) Urine Glucose (UA) >=1000 mg/dL (NEG) Urine Ketones (Stick) >=80 mg/dL (NEG) Urine Blood Negative (NEG) Urine Nitrite Negative (NEG) Urine Bilirubin Moderate (NEG) Urine Urobilinogen Dipstick 0.2 mg/dL (0.2 mg/dL) Urine Leukocyte Esterase Negative (NEG) Urine RBC 1-2 /HPF (0-2) Urine WBC 11-20 /HPF (0-4) Urine Squamous Epithelial Cells Many /LPF Urine Bacteria 0 /HPF (0-FEW) Urine Hyaline Casts Moderate /HPF Urine Mucus Marked /LPF Urine Yeast Present /HPF Glucose (Fingerstick) 325 mg/dL (70-99) O2 Saturation 97 % (92-99) Arterial Blood pH 7.35 (7.35-7.45) Arterial Blood pCO2 at Patient Temp 27 mmHg (35-46) Arterial Blood pO2 at Patient Temp 91 mmHg (65-108) Arterial Blood HCO3 15 mmol/L (21-28) Arterial Blood Base Excess -9 mmol/L (-3-3) FiO2 21 White Blood Count 7.0 x10^3/uL (4.0-11.0) Red Blood Count 4.54 x10^6/uL (3.50-5.40) Hemoglobin 13.8 g/dL (12.0-15.5) Hematocrit 39.9 % (36.0-47.0) Mean Corpuscular Volume 88 fL (79-100) Mean Corpuscular Hemoglobin 30 pg (25-35) Mean Corpuscular Hemoglobin Concent 35 g/dL (31-37) Red Cell Distribution Width 13.3 % (11.5-14.5) Platelet Count 220 x10^3/uL (140-400) Neutrophils (%) (Auto) 64 % (31-73) Lymphocytes (%) (Auto) 23 % (24-48) Monocytes (%) (Auto) 8 % (0-9) Eosinophils (%) (Auto) 4 % (0-3) Basophils (%) (Auto) 1 % (0-3) Neutrophils # (Auto) 4.5 x10^3/uL (1.8-7.7) Lymphocytes # (Auto) 1.6 x10^3/uL (1.0-4.8) Monocytes # (Auto) 0.6 x10^3/uL (0.0-1.1) Eosinophils # (Auto) 0.3 x10^3/uL (0.0-0.7) Basophils # (Auto) 0.1 x10^3/uL (0.0-0.2) Sodium Level 135 mmol/L (136-145) Potassium Level 4.0 mmol/L (3.5-5.1) Chloride Level 102 mmol/L (98-107) Carbon Dioxide Level 19 mmol/L (21-32) Anion Gap 14 (6-14) Blood Urea Nitrogen 13 mg/dL (7-20) Creatinine 0.9 mg/dL (0.6-1.0) Estimated GFR (Cockcroft-Gault) 62.3 BUN/Creatinine Ratio 14 (6-20) Glucose Level 308 mg/dL (70-99) Calcium Level 8.8 mg/dL (8.5-10.1) Total Bilirubin 0.5 mg/dL (0.2-1.0) Aspartate Amino Transf (AST/SGOT) 18 U/L (15-37) Alanine Aminotransferase (ALT/SGPT) 25 U/L (14-59) Alkaline Phosphatase 61 U/L (46-116) Total Protein 6.8 g/dL (6.4-8.2) Albumin 3.1 g/dL (3.4-5.0) Albumin/Globulin Ratio 0.8 (1.0-1.7) Acetone Level Sm pos (NEG) Test 12/04/19 21:03 12/05/19 01:27 12/05/19 04:15 12/05/19 05:51 Glucose (Fingerstick) 224 mg/dL (70-99) 198 mg/dL (70-99) 117 mg/dL (70-99) Sodium Level 141 mmol/L (136-145) Potassium Level 3.4 mmol/L (3.5-5.1) Chloride Level 109 mmol/L (98-107) Carbon Dioxide Level 20 mmol/L (21-32) Anion Gap 12 (6-14) Blood Urea Nitrogen 10 mg/dL (7-20) Creatinine 0.6 mg/dL (0.6-1.0) Estimated GFR (Cockcroft-Gault) 99.4 Glucose Level 162 mg/dL (70-99) Calcium Level 8.4 mg/dL (8.5-10.1) Test 12/05/19 08:22 12/05/19 11:46 Glucose (Fingerstick) 97 mg/dL (70-99) 156 mg/dL (70-99) Laboratory Tests Test 12/04/19 15:30 12/04/19 15:53 12/04/19 15:55 12/04/19 16:07 Urine Collection Type Unknown Urine Color Yellow Urine Clarity Clear Urine pH 5.0 (<5.0-8.0) Urine Specific [place] >=1.030 (1.000-1.030) Urine Protein 30 mg/dL (NEG-TRACE) Urine Glucose (UA) >=1000 mg/dL (NEG) Urine Ketones (Stick) >=80 mg/dL (NEG) Urine Blood Negative (NEG) Urine Nitrite Negative (NEG) Urine Bilirubin Moderate (NEG) Urine Urobilinogen Dipstick 0.2 mg/dL (0.2 mg/dL) Urine Leukocyte Esterase Negative (NEG) Urine RBC 1-2 /HPF (0-2) Urine WBC 11-20 /HPF (0-4) Urine Squamous Epithelial Cells Many /LPF Urine Bacteria 0 /HPF (0-FEW) Urine Hyaline Casts Moderate /HPF Urine Mucus Marked /LPF Urine Yeast Present /HPF Glucose (Fingerstick) 325 mg/dL (70-99) O2 Saturation 97 % (92-99) Arterial Blood pH 7.35 (7.35-7.45) Arterial Blood pCO2 at Patient Temp 27 mmHg (35-46) Arterial Blood pO2 at Patient Temp 91 mmHg (65-108) Arterial Blood HCO3 15 mmol/L (21-28) Arterial Blood Base Excess -9 mmol/L (-3-3) FiO2 21 White Blood Count 7.0 x10^3/uL (4.0-11.0) Red Blood Count 4.54 x10^6/uL (3.50-5.40) Hemoglobin 13.8 g/dL (12.0-15.5) Hematocrit 39.9 % (36.0-47.0) Mean Corpuscular Volume 88 fL (79-100) Mean Corpuscular Hemoglobin 30 pg (25-35) Mean Corpuscular Hemoglobin Concent 35 g/dL (31-37) Red Cell Distribution Width 13.3 % (11.5-14.5) Platelet Count 220 x10^3/uL (140-400) Neutrophils (%) (Auto) 64 % (31-73) Lymphocytes (%) (Auto) 23 % (24-48) Monocytes (%) (Auto) 8 % (0-9) Eosinophils (%) (Auto) 4 % (0-3) Basophils (%) (Auto) 1 % (0-3) Neutrophils # (Auto) 4.5 x10^3/uL (1.8-7.7) Lymphocytes # (Auto) 1.6 x10^3/uL (1.0-4.8) Monocytes # (Auto) 0.6 x10^3/uL (0.0-1.1) Eosinophils # (Auto) 0.3 x10^3/uL (0.0-0.7) Basophils # (Auto) 0.1 x10^3/uL (0.0-0.2) Sodium Level 135 mmol/L (136-145) Potassium Level 4.0 mmol/L (3.5-5.1) Chloride Level 102 mmol/L (98-107) Carbon Dioxide Level 19 mmol/L (21-32) Anion Gap 14 (6-14) Blood Urea Nitrogen 13 mg/dL (7-20) Creatinine 0.9 mg/dL (0.6-1.0) Estimated GFR (Cockcroft-Gault) 62.3 BUN/Creatinine Ratio 14 (6-20) Glucose Level 308 mg/dL (70-99) Calcium Level 8.8 mg/dL (8.5-10.1) Total Bilirubin 0.5 mg/dL (0.2-1.0) Aspartate Amino Transf (AST/SGOT) 18 U/L (15-37) Alanine Aminotransferase (ALT/SGPT) 25 U/L (14-59) Alkaline Phosphatase 61 U/L (46-116) Total Protein 6.8 g/dL (6.4-8.2) Albumin 3.1 g/dL (3.4-5.0) Albumin/Globulin Ratio 0.8 (1.0-1.7) Acetone Level Sm pos (NEG) Test 12/04/19 21:03 12/05/19 01:27 12/05/19 04:15 12/05/19 05:51 Glucose (Fingerstick) 224 mg/dL (70-99) 198 mg/dL (70-99) 117 mg/dL (70-99) Sodium Level 141 mmol/L (136-145) Potassium Level 3.4 mmol/L (3.5-5.1) Chloride Level 109 mmol/L (98-107) Carbon Dioxide Level 20 mmol/L (21-32) Anion Gap 12 (6-14) Blood Urea Nitrogen 10 mg/dL (7-20) Creatinine 0.6 mg/dL (0.6-1.0) Estimated GFR (Cockcroft-Gault) 99.4 Glucose Level 162 mg/dL (70-99) Calcium Level 8.4 mg/dL (8.5-10.1) Test 12/05/19 08:22 12/05/19 11:46 Glucose (Fingerstick) 97 mg/dL (70-99) 156 mg/dL (70-99) Medications Current Medications Sodium Chloride 1,000 ml @ 1,000 mls/hr 1X ONCE IV Last administered on 12/04/19at 16:19; Start 12/04/19 at 15:30; Stop 12/04/19 at 16:29; Status DC Ceftriaxone Sodium (Rocephin) 1 gm 1X ONCE IVP Last administered on 12/04/19at 18:03; Start 12/04/19 at 17:30; Stop 12/04/19 at 17:31; Status DC Insulin Human Regular (HumuLIN R VIAL) 4 unit 1X ONCE IV Last administered on 12/04/19at 18:06; Start 12/04/19 at 17:30; Stop 12/04/19 at 17:31; Status DC Sodium Chloride 1,000 ml @ 125 mls/hr Q8H IV Last administered on 12/05/19at 05:10; Start 12/04/19 at 17:16; Stop 12/05/19 at 17:15 Insulin Human Lispro (HumaLOG) 0-9 UNITS Q4HRS SQ Last administered on 12/04/19at 22:11; Start 12/04/19 at 22:00 Dextrose (Dextrose 50%-Water Syringe) 12.5 gm PRN Q15MIN PRN IV SEE COMMENTS; Start 12/04/19 at 22:00 Trazodone HCl (Desyrel) 50 mg PRN QHS PRN PO INSOMNIA; Start 12/04/19 at 23:00 Insulin Glargine (Lantus Syringe) 55 unit QHS SQ Last administered on 12/04/19at 23:45; Start 12/04/19 at 23:15 Active Scripts Active Reported Januvia (Sitagliptin Phosphate) 100 Mg Tablet 100 Mg PO HS PRN Oxybutynin Chloride 5 Mg Tablet 5 Mg PO HS Propranolol Hcl 40 Mg Tablet 40 Mg PO DAILY Crestor (Rosuvastatin Calcium) 10 Mg Tablet 10 Mg PO HS Trazodone Hcl 50 Mg Tablet 1 Tab PO QHS PRN Ambien (Zolpidem Tartrate) 10 Mg Tablet 1 Tab PO QHS Albuterol Sulfate Hfa Inhaler (Albuterol Sulfate) 8.5 Gm Hfa.aer.ad 2 Puff INH Q4HRS PRN Fish Oil ([place]-3 Fatty Acids) 500 Mg Capsule 1,200 Mg PO BID Lantus (Insulin Glargine,Hum.rec.anlog) 100 Unit/1 Ml Vial 55 Unit SQ QHS Aspir 81 (Aspirin) 81 Mg Tablet.dr 81 Mg PO DAILY Vitals/I & O Vital Sign - Last 24 Hours 12/04/19 12/04/19 12/04/19 12/05/19 15:35 15:43 23:00 03:00 Temp 98.2 98.3 98.0 98.2 98.3 98.0 Pulse 92 78 78 Resp 16 17 17 B/P (MAP) 131/76 (94) 115/53 (73) 122/58 (79) Pulse Ox 99 99 96 O2 Delivery Room Air Room Air Room Air Room Air 12/05/19 12/05/19 07:00 11:00 Temp 98.2 98.2 98.2 98.2 Pulse 67 76 Resp 14 16 B/P (MAP) 115/54 (74) 127/58 (81) Pulse Ox 98 98 O2 Delivery Room Air Room Air Intake and Output 12/04/19 12/04/19 12/05/19 15:00 23:00 07:00 Intake Total 1050 ml 1000 ml Output Total 2 ml Balance 1050 ml 998 ml Justicifation of Admission Dx: Justifications for Admission: Justification of Admission Dx: Yes DKA: CHITO BRIAN MD Dec 05, 2019 12:05
[2019-12-05] MEDS ORDERED: POTASSIUM CHLORIDE 20 MEQ TABLET.ER. PO ONE (12:15)
[2019-12-05] MEDS ORDERED: cefTRIAXone IV Push 1 GM VIAL. IVP SCH ×2 (12:30→17:30)
[2019-12-05 15:00] VITALS: BP 132/55
[2019-12-05] MEDS ORDERED: ZOLPIDEM 5 MG TABLET. PO PRN (18:00)
[2019-12-05] MEDS ORDERED: ALBUTEROL SULFATE 2.5 MG/3 ML NEBU. NEB PRN (18:15)
[2019-12-05 19:00] VITALS: BP 112/71
[2019-12-05] MEDS ORDERED: LINAGLIPTIN 5 MG TABLET PO SCH (21:00)
[2019-12-05] MEDS ORDERED: OXYBUTYNIN CHLORIDE 5 MG TABLET PO SCH (21:00)
[2019-12-05] MEDS ORDERED: ZOLPIDEM 5 MG TABLET. PO SCH (21:00)
[2019-12-05] MEDS ORDERED: ATORVASTATIN CALCIUM 40 MG TABLET. PO SCH (21:00)
[2019-12-05] MEDS: LACTOBACILLUS RHAMNOSUS GG 1 CAPSULE. PO SCH (21:03)
[2019-12-05] MEDS: OMEGA-3 FATTY ACIDS/FISH OIL 1,000 MG CAPSULE. PO SCH (21:04)
[2019-12-05] MEDS: INSULIN GLARGINE SYRINGE. SQ SCH (21:06)
--- NOTE | 2019-12-05 21:21 | NUR ---
Pt. went to surgery around 1800 and went to ICU afterwards Addendum: 12/06/19 at 1916 by WILLA GARCIA RN Pt. did not go to surgery. Documented on wrong pt.
[2019-12-05 23:03] VITALS: BP 110/48
[2019-12-06 03:17] VITALS: BP 115/56
[2019-12-06] MEDS: INSULIN LISPRO 300 UNITS/3 ML VIAL. SQ SCH ×4 (04:00→11:49)
[2019-12-06 04:44] LABS: BASO % 1 % (0-3); EOS # 0.6 x10^3/uL (0.0-0.7); EOS % 8 % (0-3); HEMOGLOBIN 13.9 g/dL (12.0-15.5); LYMPH # 1.8 x10^3/uL (1.0-4.8); LYMPH % 23 % (24-48); MEAN CORPUSCULAR HEMOGLOBIN 30 pg (25-35); MEAN CORPUSCULAR HGB CONC 35 g/dL (31-37); MEAN CORPUSCULAR VOLUME 87 fL (79-100); MONO # 0.7 x10^3/uL (0.0-1.1); MONO % 9 % (0-9); NEUT # 4.7 x10^3/uL (1.8-7.7); NEUT % 60 % (31-73); PLATELET COUNT 215 x10^3/uL (140-400); RED BLOOD COUNT 4.58 x10^6/uL (3.50-5.40); RED CELL DISTRIBUTION WIDTH 13.5 % (11.5-14.5); WHITE BLOOD COUNT 7.8 x10^3/uL (4.0-11.0)
[2019-12-06 05:03] LABS: ALBUMIN 2.6 g/dL (3.4-5.0); ALBUMIN/GLOBULIN RATIO 0.7 (1.0-1.7); CALCIUM 8.3 mg/dL (8.5-10.1); CREATININE 0.9 mg/dL (0.6-1.0); GFR 62.3; POTASSIUM 3.6 mmol/L (3.5-5.1); TOTAL BILIRUBIN 0.2 mg/dL (0.2-1.0); TOTAL PROTEIN 6.3 g/dL (6.4-8.2)
[2019-12-06 07:00] VITALS: BP 102/64
[2019-12-06] MEDS ORDERED: POTASSIUM CHLORIDE 20 MEQ TABLET.ER. PO SCH (08:00)
[2019-12-06] MEDS: LACTOBACILLUS RHAMNOSUS GG 1 CAPSULE. PO SCH (08:18)
[2019-12-06] MEDS: OMEGA-3 FATTY ACIDS/FISH OIL 1,000 MG CAPSULE. PO SCH (08:18)
[2019-12-06] MEDS ORDERED: PROPRANOLOL 40 MG TABLET. PO SCH (09:00)
[2019-12-06] MEDS ORDERED: ASPIRIN ENTERIC COATED 81 MG TABLET.DR. PO SCH (09:00)
[2019-12-06 11:00] VITALS: BP 112/51
--- NOTE | 2019-12-06 11:02 | PDOC ---
PROGRESS NOTES Date of Service: DATE: 12/06/19 TIME: 11:02 Chief Complaint Chief Complaint DISCHARGE DX diabetic ketoacidosis. hypokalemia admit IV fluids, insulin possible urinary tract infection. IV antibiotics, home meds, DVT prophylaxis. Full code urine culture replace k . d/c planning 26 min History of Present Illness History of Present Illness The patient is a pleasant 69-year-old female who is on insulin for her diabetes. She presented with hyperglycemia, glucose was [id number]. Her ketones are greater than a 1000 in her urine. She has a slight anion gap metabolic acidosis. I discussed the case with the ER physician and thenurse practitioner. We are going to admit the patient, give her fluids, insulin and we are also giving her some IV antibiotics Vitals Vitals Vital Signs Date Time Temp Pulse Resp B/P (MAP) Pulse Ox O2 Delivery O2 Flow Rate FiO2 12/06/19 08:17 67 102/64 12/06/19 07:00 97.9 18 98 Room Air 97.9 Physical Exam Physical Exam light and accommodation MUSCULOSKELETAL: Well developed, well nourished, good range of motion ENDOCRINE: No thyromegaly was palpated LYMPHATICS: No cervical chain or axillary nodes were noted HEMATOPOIETIC: No bruising NECK: Supple, no JVD, no thyromegaly was noted. LUNGS: Clear to auscultation in all lung lara without rhonchi or wheezing. HEART: RRR, S1, S2 present. Peripheral pulses intact, no obvious murmurs were noted. ABDOMEN: Soft, nontender. Positive bowel sounds no organomegaly, normal bowel sounds. EXTREMITIES: Without any cyanosis, clubbing, or edema. Pedal pulses intact, Homans sign is negative. NEUROLOGIC: Normal speech, normal tone. A & O x3, moves all extremities, no obvious focal deficits. PSYCHIATRIC: Normal affect, normal mood. Stable. SKIN: No ulcerations or rashes, good skin turgor, no jaundice. VASCULAR: Good capillary refill, neurovascular bundle appears to be intact. General: Alert, Oriented X3, Cooperative, No acute distress Heart: Regular rate, Normal S1, No murmurs Lungs: Clear Abdomen: Normal bowel sounds, Soft Extremities: No cyanosis Labs LABS URINE CULTURE Final Final 30,000 CFU/ML Normal genitourinary elmer, not indicative of infection on 12/06/19 at 0853 Testing Performed by: [address] [id number] For Inquires, the Physician may contact the Microbiology department at [phone] Unless otherwise specified, Testing Performed by: [address] [id number] For Inquires, the Physician may contact the Microbiology department at [phone] Laboratory Tests Test 12/05/19 11:46 12/05/19 16:45 12/05/19 20:29 12/06/19 03:55 Glucose (Fingerstick) 156 mg/dL (70-99) 170 mg/dL (70-99) 171 mg/dL (70-99) White Blood Count 7.8 x10^3/uL (4.0-11.0) Red Blood Count 4.58 x10^6/uL (3.50-5.40) Hemoglobin 13.9 g/dL (12.0-15.5) Hematocrit 40.0 % (36.0-47.0) Mean Corpuscular Volume 87 fL (79-100) Mean Corpuscular Hemoglobin 30 pg (25-35) Mean Corpuscular Hemoglobin Concent 35 g/dL (31-37) Red Cell Distribution Width 13.5 % (11.5-14.5) Platelet Count 215 x10^3/uL (140-400) Neutrophils (%) (Auto) 60 % (31-73) Lymphocytes (%) (Auto) 23 % (24-48) Monocytes (%) (Auto) 9 % (0-9) Eosinophils (%) (Auto) 8 % (0-3) Basophils (%) (Auto) 1 % (0-3) Neutrophils # (Auto) 4.7 x10^3/uL (1.8-7.7) Lymphocytes # (Auto) 1.8 x10^3/uL (1.0-4.8) Monocytes # (Auto) 0.7 x10^3/uL (0.0-1.1) Eosinophils # (Auto) 0.6 x10^3/uL (0.0-0.7) Basophils # (Auto) 0.0 x10^3/uL (0.0-0.2) Sodium Level 141 mmol/L (136-145) Potassium Level 3.6 mmol/L (3.5-5.1) Chloride Level 108 mmol/L (98-107) Carbon Dioxide Level 24 mmol/L (21-32) Anion Gap 9 (6-14) Blood Urea Nitrogen 11 mg/dL (7-20) Creatinine 0.9 mg/dL (0.6-1.0) Estimated GFR (Cockcroft-Gault) 62.3 BUN/Creatinine Ratio 12 (6-20) Glucose Level 159 mg/dL (70-99) Calcium Level 8.3 mg/dL (8.5-10.1) Total Bilirubin 0.2 mg/dL (0.2-1.0) Aspartate Amino Transf (AST/SGOT) 18 U/L (15-37) Alanine Aminotransferase (ALT/SGPT) 18 U/L (14-59) Alkaline Phosphatase 60 U/L (46-116) Total Protein 6.3 g/dL (6.4-8.2) Albumin 2.6 g/dL (3.4-5.0) Albumin/Globulin Ratio 0.7 (1.0-1.7) Test 12/06/19 03:58 12/06/19 07:05 Glucose (Fingerstick) 135 mg/dL (70-99) 129 mg/dL (70-99) Assessment and Plan Assessmemt and Plan Problems Medical Problems: (1) DKA (diabetic ketoacidoses) Status: Acute (2) UTI (urinary tract infection) Status: Acute Comment Review of Relevant I have reviewed the following items william (where applicable) has been applied. Labs Laboratory Tests Test 12/04/19 15:30 12/04/19 15:53 12/04/19 15:55 12/04/19 16:07 Urine Collection Type Unknown Urine Color Yellow Urine Clarity Clear Urine pH 5.0 (<5.0-8.0) Urine Specific [place] >=1.030 (1.000-1.030) Urine Protein 30 mg/dL (NEG-TRACE) Urine Glucose (UA) >=1000 mg/dL (NEG) Urine Ketones (Stick) >=80 mg/dL (NEG) Urine Blood Negative (NEG) Urine Nitrite Negative (NEG) Urine Bilirubin Moderate (NEG) Urine Urobilinogen Dipstick 0.2 mg/dL (0.2 mg/dL) Urine Leukocyte Esterase Negative (NEG) Urine RBC 1-2 /HPF (0-2) Urine WBC 11-20 /HPF (0-4) Urine Squamous Epithelial Cells Many /LPF Urine Bacteria 0 /HPF (0-FEW) Urine Hyaline Casts Moderate /HPF Urine Mucus Marked /LPF Urine Yeast Present /HPF Glucose (Fingerstick) 325 mg/dL (70-99) O2 Saturation 97 % (92-99) Arterial Blood pH 7.35 (7.35-7.45) Arterial Blood pCO2 at Patient Temp 27 mmHg (35-46) Arterial Blood pO2 at Patient Temp 91 mmHg (65-108) Arterial Blood HCO3 15 mmol/L (21-28) Arterial Blood Base Excess -9 mmol/L (-3-3) FiO2 21 White Blood Count 7.0 x10^3/uL (4.0-11.0) Red Blood Count 4.54 x10^6/uL (3.50-5.40) Hemoglobin 13.8 g/dL (12.0-15.5) Hematocrit 39.9 % (36.0-47.0) Mean Corpuscular Volume 88 fL (79-100) Mean Corpuscular Hemoglobin 30 pg (25-35) Mean Corpuscular Hemoglobin Concent 35 g/dL (31-37) Red Cell Distribution Width 13.3 % (11.5-14.5) Platelet Count 220 x10^3/uL (140-400) Neutrophils (%) (Auto) 64 % (31-73) Lymphocytes (%) (Auto) 23 % (24-48) Monocytes (%) (Auto) 8 % (0-9) Eosinophils (%) (Auto) 4 % (0-3) Basophils (%) (Auto) 1 % (0-3) Neutrophils # (Auto) 4.5 x10^3/uL (1.8-7.7) Lymphocytes # (Auto) 1.6 x10^3/uL (1.0-4.8) Monocytes # (Auto) 0.6 x10^3/uL (0.0-1.1) Eosinophils # (Auto) 0.3 x10^3/uL (0.0-0.7) Basophils # (Auto) 0.1 x10^3/uL (0.0-0.2) Sodium Level 135 mmol/L (136-145) Potassium Level 4.0 mmol/L (3.5-5.1) Chloride Level 102 mmol/L (98-107) Carbon Dioxide Level 19 mmol/L (21-32) Anion Gap 14 (6-14) Blood Urea Nitrogen 13 mg/dL (7-20) Creatinine 0.9 mg/dL (0.6-1.0) Estimated GFR (Cockcroft-Gault) 62.3 BUN/Creatinine Ratio 14 (6-20) Glucose Level 308 mg/dL (70-99) Calcium Level 8.8 mg/dL (8.5-10.1) Total Bilirubin 0.5 mg/dL (0.2-1.0) Aspartate Amino Transf (AST/SGOT) 18 U/L (15-37) Alanine Aminotransferase (ALT/SGPT) 25 U/L (14-59) Alkaline Phosphatase 61 U/L (46-116) Total Protein 6.8 g/dL (6.4-8.2) Albumin 3.1 g/dL (3.4-5.0) Albumin/Globulin Ratio 0.8 (1.0-1.7) Acetone Level Sm pos (NEG) Test 12/04/19 21:03 12/05/19 01:27 12/05/19 04:15 12/05/19 05:51 Glucose (Fingerstick) 224 mg/dL (70-99) 198 mg/dL (70-99) 117 mg/dL (70-99) Sodium Level 141 mmol/L (136-145) Potassium Level 3.4 mmol/L (3.5-5.1) Chloride Level 109 mmol/L (98-107) Carbon Dioxide Level 20 mmol/L (21-32) Anion Gap 12 (6-14) Blood Urea Nitrogen 10 mg/dL (7-20) Creatinine 0.6 mg/dL (0.6-1.0) Estimated GFR (Cockcroft-Gault) 99.4 Glucose Level 162 mg/dL (70-99) Calcium Level 8.4 mg/dL (8.5-10.1) Test 12/05/19 08:22 12/05/19 11:46 12/05/19 16:45 12/05/19 20:29 Glucose (Fingerstick) 97 mg/dL (70-99) 156 mg/dL (70-99) 170 mg/dL (70-99) 171 mg/dL (70-99) Test 12/06/19 03:55 12/06/19 03:58 12/06/19 07:05 White Blood Count 7.8 x10^3/uL (4.0-11.0) Red Blood Count 4.58 x10^6/uL (3.50-5.40) Hemoglobin 13.9 g/dL (12.0-15.5) Hematocrit 40.0 % (36.0-47.0) Mean Corpuscular Volume 87 fL (79-100) Mean Corpuscular Hemoglobin 30 pg (25-35) Mean Corpuscular Hemoglobin Concent 35 g/dL (31-37) Red Cell Distribution Width 13.5 % (11.5-14.5) Platelet Count 215 x10^3/uL (140-400) Neutrophils (%) (Auto) 60 % (31-73) Lymphocytes (%) (Auto) 23 % (24-48) Monocytes (%) (Auto) 9 % (0-9) Eosinophils (%) (Auto) 8 % (0-3) Basophils (%) (Auto) 1 % (0-3) Neutrophils # (Auto) 4.7 x10^3/uL (1.8-7.7) Lymphocytes # (Auto) 1.8 x10^3/uL (1.0-4.8) Monocytes # (Auto) 0.7 x10^3/uL (0.0-1.1) Eosinophils # (Auto) 0.6 x10^3/uL (0.0-0.7) Basophils # (Auto) 0.0 x10^3/uL (0.0-0.2) Sodium Level 141 mmol/L (136-145) Potassium Level 3.6 mmol/L (3.5-5.1) Chloride Level 108 mmol/L (98-107) Carbon Dioxide Level 24 mmol/L (21-32) Anion Gap 9 (6-14) Blood Urea Nitrogen 11 mg/dL (7-20) Creatinine 0.9 mg/dL (0.6-1.0) Estimated GFR (Cockcroft-Gault) 62.3 BUN/Creatinine Ratio 12 (6-20) Glucose Level 159 mg/dL (70-99) Calcium Level 8.3 mg/dL (8.5-10.1) Total Bilirubin 0.2 mg/dL (0.2-1.0) Aspartate Amino Transf (AST/SGOT) 18 U/L (15-37) Alanine Aminotransferase (ALT/SGPT) 18 U/L (14-59) Alkaline Phosphatase 60 U/L (46-116) Total Protein 6.3 g/dL (6.4-8.2) Albumin 2.6 g/dL (3.4-5.0) Albumin/Globulin Ratio 0.7 (1.0-1.7) Glucose (Fingerstick) 135 mg/dL (70-99) 129 mg/dL (70-99) Laboratory Tests Test 12/05/19 11:46 12/05/19 16:45 12/05/19 20:29 12/06/19 03:55 Glucose (Fingerstick) 156 mg/dL (70-99) 170 mg/dL (70-99) 171 mg/dL (70-99) White Blood Count 7.8 x10^3/uL (4.0-11.0) Red Blood Count 4.58 x10^6/uL (3.50-5.40) Hemoglobin 13.9 g/dL (12.0-15.5) Hematocrit 40.0 % (36.0-47.0) Mean Corpuscular Volume 87 fL (79-100) Mean Corpuscular Hemoglobin 30 pg (25-35) Mean Corpuscular Hemoglobin Concent 35 g/dL (31-37) Red Cell Distribution Width 13.5 % (11.5-14.5) Platelet Count 215 x10^3/uL (140-400) Neutrophils (%) (Auto) 60 % (31-73) Lymphocytes (%) (Auto) 23 % (24-48) Monocytes (%) (Auto) 9 % (0-9) Eosinophils (%) (Auto) 8 % (0-3) Basophils (%) (Auto) 1 % (0-3) Neutrophils # (Auto) 4.7 x10^3/uL (1.8-7.7) Lymphocytes # (Auto) 1.8 x10^3/uL (1.0-4.8) Monocytes # (Auto) 0.7 x10^3/uL (0.0-1.1) Eosinophils # (Auto) 0.6 x10^3/uL (0.0-0.7) Basophils # (Auto) 0.0 x10^3/uL (0.0-0.2) Sodium Level 141 mmol/L (136-145) Potassium Level 3.6 mmol/L (3.5-5.1) Chloride Level 108 mmol/L (98-107) Carbon Dioxide Level 24 mmol/L (21-32) Anion Gap 9 (6-14) Blood Urea Nitrogen 11 mg/dL (7-20) Creatinine 0.9 mg/dL (0.6-1.0) Estimated GFR (Cockcroft-Gault) 62.3 BUN/Creatinine Ratio 12 (6-20) Glucose Level 159 mg/dL (70-99) Calcium Level 8.3 mg/dL (8.5-10.1) Total Bilirubin 0.2 mg/dL (0.2-1.0) Aspartate Amino Transf (AST/SGOT) 18 U/L (15-37) Alanine Aminotransferase (ALT/SGPT) 18 U/L (14-59) Alkaline Phosphatase 60 U/L (46-116) Total Protein 6.3 g/dL (6.4-8.2) Albumin 2.6 g/dL (3.4-5.0) Albumin/Globulin Ratio 0.7 (1.0-1.7) Test 8/9/20 03:58 12/06/19 07:05 Glucose (Fingerstick) 135 mg/dL (70-99) 129 mg/dL (70-99) Microbiology 12/04/19 Urine Culture - Final, Complete Medications Current Medications Sodium Chloride 1,000 ml @ 1,000 mls/hr 1X ONCE IV Last administered on 12/03at 16:19; Start 12/04/19 at 15:30; Stop 12/04/19 at 16:29; Status DC Ceftriaxone Sodium (Rocephin) 1 gm 1X ONCE IVP Last administered on 12/04/19at 18:03; Start 12/04/19 at 17:30; Stop 12/04/19 at 17:31; Status DC Insulin Human Regular (HumuLIN R VIAL) 4 unit 1X ONCE IV Last administered on 12/04/19at 18:06; Start 12/04/19 at 17:30; Stop 12/04/19 at 17:31; Status DC Sodium Chloride 1,000 ml @ 125 mls/hr Q8H IV Last administered on 12/05/19at 05:10; Start 12/04/19 at 17:16; Stop 12/05/19 at 17:15; Status DC Insulin Human Lispro (HumaLOG) 0-9 UNITS Q4HRS SQ Last administered on 12/05/19at 17:13; Start 12/04/19 at 22:00 Dextrose (Dextrose 50%-Water Syringe) 12.5 gm PRN Q15MIN PRN IV SEE COMMENTS; Start 12/04/19 at 22:00 Trazodone HCl (Desyrel) 50 mg PRN QHS PRN PO INSOMNIA; Start 12/04/19 at 23:00 Insulin Glargine (Lantus Syringe) 55 unit QHS SQ Last administered on 12/05/19at 21:06; Start 12/04/19 at 23:15 Ceftriaxone Sodium (Rocephin) 1 gm Q24H IVP ; Start 12/05/19 at 12:30; Stop 12/05/19 at 12:05; Status DC Potassium Chloride (Klor-Con) 40 meq 1X ONCE PO Last administered on 12/05/19at 14:14; Start 12/05/19 at 12:15; Stop 12/05/19 at 12:16; Status DC Potassium Chloride (Klor-Con) 20 meq [id number] PO Last administered on 12/06/19 08:18; Start 12/06/19 at 08:00 Ceftriaxone Sodium (Rocephin) 1 gm Q24H IVP Last administered on 12/05/19at 16:59; Start 12/05/19 at 17:30 Lactobacillus Rhamnosus (Culturelle) 1 cap BID PO Last administered on 12/06/19 08:18; Start 12/05/19 at 21:00 Aspirin (Ecotrin) 81 mg DAILY PO Last administered on 12/06/19 08:18; Start 12/06/19 at 09:00 Oxybutynin Chloride (Ditropan) 5 mg HS PO Last administered on 12/05/19 21:03; Start 12/05/19 at 21:00 Propranolol HCl (Inderal) 40 mg DAILY PO Last administered on 12/06/19 08:17; Start 12/06/19 at 09:00 Albuterol Sulfate (Ventolin Neb Soln) 2.5 mg PRN Q4HRS PRN NEB SHORTNESS OF BREATH; Start 12/05/19 at 18:15 Fish Oil (Fish Oil) 1,000 mg BID PO Last administered on 12/06/19 08:18; Start 12/05/19 at 21:00 Atorvastatin Calcium (Lipitor) 40 mg QHS PO Last administered on 12/05/19 21:04; Start 12/05/19 at 21:00 Linagliptin (Tradjenta) 5 mg QHS PO Last administered on 12/05/19 21:04; Start 12/05/19 at 21:00 Zolpidem Tartrate (Ambien) 5 mg QHS PO Last administered on 12/05/19 21:08; Start 12/05/19 at 21:00 Zolpidem Tartrate (Ambien) 5 mg PRN QHS PRN PO INSOMNIA Last administered on 12/06/19 00:05; Start 12/05/19 at 18:00 Active Scripts Active Reported Januvia (Sitagliptin Phosphate) 100 Mg Tablet 100 Mg PO HS PRN Oxybutynin Chloride 5 Mg Tablet 5 Mg PO HS Propranolol Hcl 40 Mg Tablet 40 Mg PO DAILY Crestor (Rosuvastatin Calcium) 10 Mg Tablet 10 Mg PO HS Trazodone Hcl 50 Mg Tablet 1 Tab PO QHS PRN Ambien (Zolpidem Tartrate) 10 Mg Tablet 1 Tab PO QHS Albuterol Sulfate Hfa Inhaler (Albuterol Sulfate) 8.5 Gm Hfa.aer.ad 2 Puff INH Q4HRS PRN Fish Oil ([place]-3 Fatty Acids) 500 Mg Capsule 1,200 Mg PO BID Lantus (Insulin Glargine,Hum.rec.anlog) 100 Unit/1 Ml Vial 55 Unit SQ QHS Aspir 81 (Aspirin) 81 Mg Tablet.dr 81 Mg PO DAILY Vitals/I & O Vital Sign - Last 24 Hours 12/05/19 12/05/19 12/05/19 12/06/19 15:00 19:00 23:03 03:17 Temp 98.1 98.1 98.3 98.1 98.1 98.1 98.3 98.1 Pulse 63 68 76 69 Resp 18 20 18 18 B/P (MAP) 132/55 (80) 112/71 (85) 110/48 (68) 115/56 (75) Pulse Ox 100 99 97 98 O2 Delivery Room Air Room Air Room Air Room Air 12/06/19 12/06/19 07:00 08:17 Temp 97.9 97.9 Pulse 67 67 Resp 18 B/P (MAP) 102/64 (77) 102/64 Pulse Ox 98 O2 Delivery Room Air Intake and Output 12/05/19 12/05/19 12/06/19 15:00 23:00 07:00 Intake Total 200 ml 360 ml Output Total 350 ml 475 ml 0 ml Balance -150 ml -115 ml 0 ml Justicifation of Admission Dx: Justifications for Admission: Justification of Admission Dx: Yes DKA: CHITO BRIAN MD Dec 06, 2019 11:02
--- NOTE | 2019-12-06 13:32 | PDOC3 ---
Discharge Summary Date of Admission: Dec 04, 2019 Date of Discharge: Dec 06, 2019 Follow-Up: 3-5 days Admitting Diagnosis comment: DISCHARGE DX diabetic ketoacidosis. hypokalemia admit IV fluids, insulin possible urinary tract infection. IV antibiotics, home meds, DVT prophylaxis. Full code urine culture replace k . d/c planning 26 min History of Present Illness History of Present Illness The patient is a pleasant 69-year-old female who is on insulin for her diabetes. She presented with hyperglycemia, glucose was [id number]. Her ketones are greater than a 1000 in her urine. She has a slight anion gap metabolic acidosis. I discussed the case with the ER physician and thenurse practitioner. We are going to admit the patient, give her fluids, insulin and we are also giving her some IV antibiotics Vitals Vitals Vital Signs Date Time Temp Pulse Resp B/P (MAP) Pulse Ox O2 Delivery O2 Flow Rate FiO2 12/06/19 08:17 67 102/64 12/06/19 07:00 97.9 18 98 Room Air 97.9 Physical Exam Physical Exam light and accommodation MUSCULOSKELETAL: Well developed, well nourished, good range of motion ENDOCRINE: No thyromegaly was palpated LYMPHATICS: No cervical chain or axillary nodes were noted HEMATOPOIETIC: No bruising NECK: Supple, no JVD, no thyromegaly was noted. LUNGS: Clear to auscultation in all lung lara without rhonchi or wheezing. HEART: RRR, S1, S2 present. Peripheral pulses intact, no obvious murmurs were noted. ABDOMEN: Soft, nontender. Positive bowel sounds no organomegaly, normal bowel sounds. EXTREMITIES: Without any cyanosis, clubbing, or edema. Pedal pulses intact, Homans sign is negative. NEUROLOGIC: Normal speech, normal tone. A & O x3, moves all extremities, no obvious focal deficits. PSYCHIATRIC: Normal affect, normal mood. Stable. SKIN: No ulcerations or rashes, good skin turgor, no jaundice. VASCULAR: Good capillary refill, neurovascular bundle appears to be intact. General: Alert, Oriented X3, Cooperative, No acute distress Heart: Regular rate, Normal S1, No murmurs Lungs: Clear Abdomen: Normal bowel sounds, Soft Extremities: No cyanosis Labs LABS ------- ----- URINE CULTURE Final Final 30,000 CFU/ML Normal genitourinary elmer, not indicative of infection on 12/06/19 at 0853 Testing Performed by: [address] [id number] For Inquires, the Physician may contact the Microbiology department at [phone] Unless otherwise specified, Testing Performed by: [address] [id number] For Inquires, the Physician may contact the Microbiology department at [phone] FINAL DIAGNOSIS Problems Medical Problems: (1) DKA (diabetic ketoacidoses) Status: Acute (2) UTI (urinary tract infection) Status: Acute Brief Hospital Course Ms. Hughes is a 69 old [sex] who presented with [ DKA ] CONDITION AT DISCHARGE: Improved Discharge Medications Current Medications Sodium Chloride 1,000 ml @ 1,000 mls/hr 1X ONCE IV Last administered on 12/04/19at 16:19; Start 12/04/19 at 15:30; Stop 12/04/19 at 16:29; Status DC Ceftriaxone Sodium (Rocephin) 1 gm 1X ONCE IVP Last administered on 12/04/19at 18:03; Start 12/04/19 at 17:30; Stop 12/04/19 at 17:31; Status DC Insulin Human Regular (HumuLIN R VIAL) 4 unit 1X ONCE IV Last administered on 12/04/19at 18:06; Start 12/04/19 at 17:30; Stop 12/04/19 at 17:31; Status DC Sodium Chloride 1,000 ml @ 125 mls/hr Q8H IV Last administered on 12/05/19at 05:10; Start 12/04/19 at 17:16; Stop 12/05/19 at 17:15; Status DC Insulin Human Lispro (HumaLOG) 0-9 UNITS Q4HRS SQ Last administered on 12/06/19at 11:49; Start 12/04/19 at 22:00 Dextrose (Dextrose 50%-Water Syringe) 12.5 gm PRN Q15MIN PRN IV SEE COMMENTS; Start 12/04/19 at 22:00 Trazodone HCl (Desyrel) 50 mg PRN QHS PRN PO INSOMNIA; Start 12/04/19 at 23:00 Insulin Glargine (Lantus Syringe) 55 unit QHS SQ Last administered on 12/05/19at 21:06; Start 12/04/19 at 23:15 Ceftriaxone Sodium (Rocephin) 1 gm Q24H IVP ; Start 12/05/19 at 12:30; Stop 12/05/19 at 12:05; Status DC Potassium Chloride (Klor-Con) 40 meq 1X ONCE PO Last administered on 12/05/19 14:14; Start 12/05/19 at 12:15; Stop 12/05/19 at 12:16; Status DC Potassium Chloride (Klor-Con) 20 meq DAILYWBKFT PO Last administered on 12/06/19at 08:18; Start 12/06/19 at 08:00 Ceftriaxone Sodium (Rocephin) 1 gm Q24H IVP Last administered on 12/05/19 16:59; Start 12/05/19 at 17:30 Lactobacillus Rhamnosus (Culturelle) 1 cap BID PO Last administered on 12/06/19 08:18; Start 12/05/19 at 21:00 Aspirin (Ecotrin) 81 mg DAILY PO Last administered on 12/06/19 08:18; Start 12/06/19 at 09:00 Oxybutynin Chloride (Ditropan) 5 mg HS PO Last administered on 12/05/19 21:03; Start 12/05/19 at 21:00 Propranolol HCl (Inderal) 40 mg DAILY PO Last administered on 12/06/19 08:17; Start 12/06/19 at 09:00 Albuterol Sulfate (Ventolin Neb Soln) 2.5 mg PRN Q4HRS PRN NEB SHORTNESS OF BREATH; Start 12/05/19 at 18:15 Fish Oil (Fish Oil) 1,000 mg BID PO Last administered on 12/06/19at 08:18; Start 12/05/19 at 21:00 Atorvastatin Calcium (Lipitor) 40 mg QHS PO Last administered on 12/05/19at 21:04; Start 12/05/19 at 21:00 Linagliptin (Tradjenta) 5 mg QHS PO Last administered on 12/05/19at 21:04; Start 12/05/19 at 21:00 Zolpidem Tartrate (Ambien) 5 mg QHS PO Last administered on 12/05/19at 21:08; Start 12/05/19 at 21:00 Zolpidem Tartrate (Ambien) 5 mg PRN QHS PRN PO INSOMNIA Last administered on 12/06/19at 00:05; Start 12/05/19 at 18:00 Active Scripts Active Reported Januvia (Sitagliptin Phosphate) 100 Mg Tablet 100 Mg PO HS PRN Oxybutynin Chloride 5 Mg Tablet 5 Mg PO HS Propranolol Hcl 40 Mg Tablet 40 Mg PO DAILY Crestor (Rosuvastatin Calcium) 10 Mg Tablet 10 Mg PO HS Trazodone Hcl 50 Mg Tablet 1 Tab PO QHS PRN Ambien (Zolpidem Tartrate) 10 Mg Tablet 1 Tab PO QHS Albuterol Sulfate Hfa Inhaler (Albuterol Sulfate) 8.5 Gm Hfa.aer.ad 2 Puff INH Q4HRS PRN Fish Oil (Magnolia-3 Fatty Acids) 500 Mg Capsule 1,200 Mg PO BID Lantus (Insulin Glargine,Hum.rec.anlog) 100 Unit/1 Ml Vial 55 Unit SQ QHS Aspir 81 (Aspirin) 81 Mg Tablet.dr 81 Mg PO DAILY Vital Signs Vital Signs Date Time Temp Pulse Resp B/P (MAP) Pulse Ox O2 Delivery O2 Flow Rate FiO2 12/06/19 11:00 98.2 68 18 112/51 (71) 98 Room Air 98.2 Labs Laboratory Tests Test 12/04/19 15:30 12/04/19 15:53 12/04/19 15:55 12/04/19 16:07 Urine Collection Type Unknown Urine Color Yellow Urine Clarity Clear Urine pH 5.0 (<5.0-8.0) Urine Specific [place] >=1.030 (1.000-1.030) Urine Protein 30 mg/dL (NEG-TRACE) Urine Glucose (UA) >=1000 mg/dL (NEG) Urine Ketones (Stick) >=80 mg/dL (NEG) Urine Blood Negative (NEG) Urine Nitrite Negative (NEG) Urine Bilirubin Moderate (NEG) Urine Urobilinogen Dipstick 0.2 mg/dL (0.2 mg/dL) Urine Leukocyte Esterase Negative (NEG) Urine RBC 1-2 /HPF (0-2) Urine WBC 11-20 /HPF (0-4) Urine Squamous Epithelial Cells Many /LPF Urine Bacteria 0 /HPF (0-FEW) Urine Hyaline Casts Moderate /HPF Urine Mucus Marked /LPF Urine Yeast Present /HPF Glucose (Fingerstick) 325 mg/dL (70-99) O2 Saturation 97 % (92-99) Arterial Blood pH 7.35 (7.35-7.45) Arterial Blood pCO2 at Patient Temp 27 mmHg (35-46) Arterial Blood pO2 at Patient Temp 91 mmHg (65-108) Arterial Blood HCO3 15 mmol/L (21-28) Arterial Blood Base Excess -9 mmol/L (-3-3) FiO2 21 White Blood Count 7.0 x10^3/uL (4.0-11.0) Red Blood Count 4.54 x10^6/uL (3.50-5.40) Hemoglobin 13.8 g/dL (12.0-15.5) Hematocrit 39.9 % (36.0-47.0) Mean Corpuscular Volume 88 fL (79-100) Mean Corpuscular Hemoglobin 30 pg (25-35) Mean Corpuscular Hemoglobin Concent 35 g/dL (31-37) Red Cell Distribution Width 13.3 % (11.5-14.5) Platelet Count 220 x10^3/uL (140-400) Neutrophils (%) (Auto) 64 % (31-73) Lymphocytes (%) (Auto) 23 % (24-48) Monocytes (%) (Auto) 8 % (0-9) Eosinophils (%) (Auto) 4 % (0-3) Basophils (%) (Auto) 1 % (0-3) Neutrophils # (Auto) 4.5 x10^3/uL (1.8-7.7) Lymphocytes # (Auto) 1.6 x10^3/uL (1.0-4.8) Monocytes # (Auto) 0.6 x10^3/uL (0.0-1.1) Eosinophils # (Auto) 0.3 x10^3/uL (0.0-0.7) Basophils # (Auto) 0.1 x10^3/uL (0.0-0.2) Sodium Level 135 mmol/L (136-145) Potassium Level 4.0 mmol/L (3.5-5.1) Chloride Level 102 mmol/L (98-107) Carbon Dioxide Level 19 mmol/L (21-32) Anion Gap 14 (6-14) Blood Urea Nitrogen 13 mg/dL (7-20) Creatinine 0.9 mg/dL (0.6-1.0) Estimated GFR (Cockcroft-Gault) 62.3 BUN/Creatinine Ratio 14 (6-20) Glucose Level 308 mg/dL (70-99) Calcium Level 8.8 mg/dL (8.5-10.1) Total Bilirubin 0.5 mg/dL (0.2-1.0) Aspartate Amino Transf (AST/SGOT) 18 U/L (15-37) Alanine Aminotransferase (ALT/SGPT) 25 U/L (14-59) Alkaline Phosphatase 61 U/L (46-116) Total Protein 6.8 g/dL (6.4-8.2) Albumin 3.1 g/dL (3.4-5.0) Albumin/Globulin Ratio 0.8 (1.0-1.7) Acetone Level Sm pos (NEG) Test 12/04/19 21:03 12/05/19 01:27 12/05/19 04:15 12/05/19 05:51 Glucose (Fingerstick) 224 mg/dL (70-99) 198 mg/dL (70-99) 117 mg/dL (70-99) Sodium Level 141 mmol/L (136-145) Potassium Level 3.4 mmol/L (3.5-5.1) Chloride Level 109 mmol/L (98-107) Carbon Dioxide Level 20 mmol/L (21-32) Anion Gap 12 (6-14) Blood Urea Nitrogen 10 mg/dL (7-20) Creatinine 0.6 mg/dL (0.6-1.0) Estimated GFR (Cockcroft-Gault) 99.4 Glucose Level 162 mg/dL (70-99) Calcium Level 8.4 mg/dL (8.5-10.1) Test 12/05/19 08:22 12/05/19 11:46 12/05/19 16:45 12/05/19 20:29 Glucose (Fingerstick) 97 mg/dL (70-99) 156 mg/dL (70-99) 170 mg/dL (70-99) 171 mg/dL (70-99) Test 12/06/19 03:55 12/06/19 03:58 12/06/19 07:05 12/06/19 11:03 White Blood Count 7.8 x10^3/uL (4.0-11.0) Red Blood Count 4.58 x10^6/uL (3.50-5.40) Hemoglobin 13.9 g/dL (12.0-15.5) Hematocrit 40.0 % (36.0-47.0) Mean Corpuscular Volume 87 fL (79-100) Mean Corpuscular Hemoglobin 30 pg (25-35) Mean Corpuscular Hemoglobin Concent 35 g/dL (31-37) Red Cell Distribution Width 13.5 % (11.5-14.5) Platelet Count 215 x10^3/uL (140-400) Neutrophils (%) (Auto) 60 % (31-73) Lymphocytes (%) (Auto) 23 % (24-48) Monocytes (%) (Auto) 9 % (0-9) Eosinophils (%) (Auto) 8 % (0-3) Basophils (%) (Auto) 1 % (0-3) Neutrophils # (Auto) 4.7 x10^3/uL (1.8-7.7) Lymphocytes # (Auto) 1.8 x10^3/uL (1.0-4.8) Monocytes # (Auto) 0.7 x10^3/uL (0.0-1.1) Eosinophils # (Auto) 0.6 x10^3/uL (0.0-0.7) Basophils # (Auto) 0.0 x10^3/uL (0.0-0.2) Sodium Level 141 mmol/L (136-145) Potassium Level 3.6 mmol/L (3.5-5.1) Chloride Level 108 mmol/L (98-107) Carbon Dioxide Level 24 mmol/L (21-32) Anion Gap 9 (6-14) Blood Urea Nitrogen 11 mg/dL (7-20) Creatinine 0.9 mg/dL (0.6-1.0) Estimated GFR (Cockcroft-Gault) 62.3 BUN/Creatinine Ratio 12 (6-20) Glucose Level 159 mg/dL (70-99) Calcium Level 8.3 mg/dL (8.5-10.1) Total Bilirubin 0.2 mg/dL (0.2-1.0) Aspartate Amino Transf (AST/SGOT) 18 U/L (15-37) Alanine Aminotransferase (ALT/SGPT) 18 U/L (14-59) Alkaline Phosphatase 60 U/L (46-116) Total Protein 6.3 g/dL (6.4-8.2) Albumin 2.6 g/dL (3.4-5.0) Albumin/Globulin Ratio 0.7 (1.0-1.7) Glucose (Fingerstick) 135 mg/dL (70-99) 129 mg/dL (70-99) 253 mg/dL (70-99) Laboratory Tests Test 12/05/19 16:45 12/05/19 20:29 12/06/19 03:55 12/06/19 03:58 Glucose (Fingerstick) 170 mg/dL (70-99) 171 mg/dL (70-99) 135 mg/dL (70-99) White Blood Count 7.8 x10^3/uL (4.0-11.0) Red Blood Count 4.58 x10^6/uL (3.50-5.40) Hemoglobin 13.9 g/dL (12.0-15.5) Hematocrit 40.0 % (36.0-47.0) Mean Corpuscular Volume 87 fL (79-100) Mean Corpuscular Hemoglobin 30 pg (25-35) Mean Corpuscular Hemoglobin Concent 35 g/dL (31-37) Red Cell Distribution Width 13.5 % (11.5-14.5) Platelet Count 215 x10^3/uL (140-400) Neutrophils (%) (Auto) 60 % (31-73) Lymphocytes (%) (Auto) 23 % (24-48) Monocytes (%) (Auto) 9 % (0-9) Eosinophils (%) (Auto) 8 % (0-3) Basophils (%) (Auto) 1 % (0-3) Neutrophils # (Auto) 4.7 x10^3/uL (1.8-7.7) Lymphocytes # (Auto) 1.8 x10^3/uL (1.0-4.8) Monocytes # (Auto) 0.7 x10^3/uL (0.0-1.1) Eosinophils # (Auto) 0.6 x10^3/uL (0.0-0.7) Basophils # (Auto) 0.0 x10^3/uL (0.0-0.2) Sodium Level 141 mmol/L (136-145) Potassium Level 3.6 mmol/L (3.5-5.1) Chloride Level 108 mmol/L (98-107) Carbon Dioxide Level 24 mmol/L (21-32) Anion Gap 9 (6-14) Blood Urea Nitrogen 11 mg/dL (7-20) Creatinine 0.9 mg/dL (0.6-1.0) Estimated GFR (Cockcroft-Gault) 62.3 BUN/Creatinine Ratio 12 (6-20) Glucose Level 159 mg/dL (70-99) Calcium Level 8.3 mg/dL (8.5-10.1) Total Bilirubin 0.2 mg/dL (0.2-1.0) Aspartate Amino Transf (AST/SGOT) 18 U/L (15-37) Alanine Aminotransferase (ALT/SGPT) 18 U/L (14-59) Alkaline Phosphatase 60 U/L (46-116) Total Protein 6.3 g/dL (6.4-8.2) Albumin 2.6 g/dL (3.4-5.0) Albumin/Globulin Ratio 0.7 (1.0-1.7) Test 12/06/19 07:05 12/06/19 11:03 Glucose (Fingerstick) 129 mg/dL (70-99) 253 mg/dL (70-99) Allergies Allergies Coded Allergies Type Severity Reaction Last Updated Verified No Known Medication Allergies Allergy Unknown 12/04/19 Yes doxycycline Adverse Reaction Intermediate nausea and vomiting 09/16/14 Yes Disposition/Orders: D/C to Home Justicifation of Admission Dx: Justifications for Admission: Justification of Admission Dx: Yes DKA: LUIS EDUARDOA CHITO BLANCO MD Dec 06, 2019 13:32
[2019-12-06] MEDS ORDERED: POTA20TA4 PO (13:34)
--- NOTE | 2019-12-06 13:35 | DISCH ---
DISCHARGE INSTRUCTIONS Condition on Discharge Condition on Discharge: Stable Activity After Discharge Activity Instructions for Disc: No restrictions Lifting Instructions after Dis: No heavy lifting, No pulling or pushing, Do not lift >10 pounds Driving Instructions after Dis: Do not drive, Do not drive today Weight Bearing Status after Di: No restrictions, As tolerated Diet after Discharge Diet after Discharge: Diabetic No Calorie Level Additional Diet Restrictions: resume home diet Wound Incision Care Wound/Incision Care: Ice to area for comfort Checks after Discharge Checks after discharge: Check blood press - daily Contacting the DRShaunna after DC Call your doctor for: Concerns you may have Follow-Up Follow Up With: Primary healthcare provider in 1-2 weeks Treatment/Equipment after DC Adaptive Equipment Issued: None CHITO BLANCO MD Dec 06, 2019 13:35
--- NOTE | 2019-12-06 13:42 | NUR ---
Discharge Note: UGRPREET SERRANO Discharge instructions and discharge home medications reviewed with Patient and a copy given. All questions have been answered and understanding verbalized. The following instructions and handouts were given: Patient given education regarding new medication and follow ups. Discontinued lines and drains: Iv removed per protocol. Patient discharged home, picked up by daughter.
[2019-12-07 03:08] LABS: HEMOGLOBIN A1C 12.3 % (4.8-5.6)
== END 2019-12-06 13:40 | disposition home or self-care (01) | DRG 689 ==
LOC: ER 14:44 → 1 WEST ICU 17:11 → 5 NORTH 18:06
PROVIDERS: ADMIT Internal Medicine; ATTEND Internal Medicine
DX: N39.0 Urinary tract infection, site not specified (principal); E11.10 Type 2 diabetes mellitus with ketoacidosis without coma; E44.1 Mild protein-calorie malnutrition; E78.00 Pure hypercholesterolemia, unspecified; E78.5 Hyperlipidemia, unspecified; E87.6 Hypokalemia; I10 Essential (primary) hypertension; I25.10 Atherosclerotic heart disease of native coronary artery without angina pectoris; Z79.4 Long term (current) use of insulin; Z83.3 Family history of diabetes mellitus; Z87.891 Personal history of nicotine dependence; Z95.1 Presence of aortocoronary bypass graft; F41.9 Anxiety disorder, unspecified; G89.29 Other chronic pain; M19.90 Unspecified osteoarthritis, unspecified site; Z79.899 Other long term (current) drug therapy; Z88.8 Allergy status to other drugs, medicaments and biological substances
CPT/HCPCS: 36415; 36600; 80048; 80053; 81001; 82010; 82805; 82962; 83036; 85025; 87086; 96360; J0696; J1815; J7030; 99285-25; G0378

== ENCOUNTER 2020-06-25 06:34 | Emergency (ER) | payer MEDICARE ==
[~2020-06-25] VITALS: Ht 162.6 cm; Wt 63.6 kg
[~2020-06-25 06:34] MED LIST changes: +LEVO500T8 PO; +NITR100C6 PO; +NYST15PO2 TP; +POTA20TA4 PO
--- NOTE | 2020-06-25 06:47 | PHYS DOC ---
Past Medical History Past Medical History: Anxiety, CAD, Diabetes-Type II, High Cholesterol, Heart Disease, Hypertension, Other Additional Past Medical Histor: INSOMNIA Past Surgical History: Coronary Bypass Surgery, Other Additional Past Surgical Histo: CABG x 4, back surgery Smoking Status: Current Every Day Smoker Alcohol Use: None Drug Use: None General Adult HPI: HPI: 70-year-old female past medical history significant for diabetes, CAD, hypertension, hyperlipidemia and with pancreatic cancer on chemo, presents to the ED brought in by EMS with complaints of nausea, weakness and subjective fever/chills-"I suddenly felt really hot," 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 Glucose per ems was 65. Took 60U insulin last night, ate noodles. Reports already feeling much better with fluids and iv zofran, "I think I am just really dehydrated." Known exposure to Covid. Had chemo on Saturday. Denies any syncope, vomiting, diarrhea, chest discomfort back pain, difficulties breathing or lightheadedness. Later after initial exam pt reports pain to left medial ankl e that started after difficulty taking off her boot. Tetanus utd (3yrs ago) Review of Systems: Review of Systems: Constitutional: Denies syncope or lethargy Eyes: Denies change in visual acuity. [] HENT: Denies nasal congestion or sore throat. [] Respiratory: Denies cough or shortness of breath. [] Cardiovascular: Denies chest pain or edema. [] GI: Denies abdominal pain, vomiting, bloody stools or diarrhea. [] : Denies dysuria or hematuria Musculoskeletal: Denies back pain or unilateral LE edema Integument: Denies rash. [] Neurologic: Denies headache, focal weakness or sensory changes. [] Endocrine: Denies polyuria or polydipsia. [] Lymphatic: Denies swollen glands. [] Psychiatric: Denies depression or anxiety. [] Heart Score: Risk Factors: Risk Factors: DM, Current or recent (<one month) smoker, HTN, HLP, family history of CAD, obesity. Risk Scores: Score 0 - 3: 2.5% MACE over next 6 weeks - Discharge Home Score 4 - 6: 20.3% MACE over next 6 weeks - Admit for Clinical Observation Score 7 - 10: 72.7% MACE over next 6 weeks - Early Invasive Strategies Allergies: Allergies: Allergies Coded Allergies Type Severity Reaction Last Updated Verified doxycycline Adverse Reaction Intermediate nausea and vomiting 04/20/20 Yes Physical Exam: PE: Constitutional: Well developed, well nourished, no acute distress, non-toxic appearance. HENT: Normocephalic, atraumatic, very dry mucous membranes, no hair, very dry facial skin Eyes: EOMI, conjunctiva normal, no discharge. Neck: Normal range of motion, supple, Cardiovascular: S1/2 present, regular rhythm Lungs & Thorax: Speaking in full sentences, bilateral equal chest rise, no tachypnea or increased work of breathing Abdomen: soft, no tenderness, Skin: Warm, dry, no erythema, no rash, pale skin Back: No tenderness, no CVA tenderness. [] Extremities: No tenderness, no cyanosis, +right medial ankle swelling with petechia-early ulcer forming posterior heel with surrounding erythema/warmth, no subcutaneous emphysema Neurologic: Alert and oriented X 3, normal motor function, normal sensory function, no focal deficits noted. [] Psychologic: Affect normal, judgement normal, mood normal. [] EKG: EKG: Sinus rhythm at 72 bpm, no axis deviation, QTC 495, T wave inversion V2 and lead III, no ST elevations or ST depressions-has no chest pain Radiology/Procedures: Radiology/Procedures: IMAGING REPORT Signed PATIENT: GURPREET SERRANO ACCOUNT: [id number] : 1950 LOCATION: ER AGE: 70 SEX: F EXAM STATUS: REG ER ORD. PHYSICIAN: KELLY CANALES DO REASON: n/v PROCEDURE: PORTABLE CHEST 1V XR CHEST 1V INDICATION: n/v COMPARISON STUDY: None. FINDINGS: Right IJ Port-A-Cath. Lungs: Normal lung volume. No pulmonary mass or consolidation. The tracheobronchial tree and hilar structures are normal. Pleura: No pleural effusion or pneumothorax. Heart and Mediastinum: Normal cardiac size. Median sternotomy. The great vessels of the thorax are normal. IMPRESSION: No acute cardiopulmonary process. Electronically signed by: Price Villa MD (06/25/2020 7:07 AM) [id number] DICTATED and SIGNED BY: PRICE VILLA MD DATE: 06/25/20 [id number] IMAGING REPORT Signed PATIENT: GURPREET SERRANO ACCOUNT: [id number] : 1950 LOCATION: ER AGE: 70 SEX: F EXAM STATUS: REG ER ORD. PHYSICIAN: KELLY CANALES DO REASON: Left medial ankle swelling/pain PROCEDURE: ANKLE LEFT 3V XR EXAM OF ANKLE_LEFT 3V DATE: 06/25/2020 8:17 AM INDICATION: Left medial ankle swelling/pain COMPARISON: 09/27/2004 FINDINGS: Bones: There is no evidence of acute fracture or dislocation. There are a couple of tiny chronic appearing ossific densities adjacent to the medial and lateral malleoli, which may relate to remote injury. Joints: The ankle mortise is congruent. No widening of the distal tibiofibular syndesmosis. Miscellaneous: Surgical clip overlying the medial leg soft tissues. IMPRESSION: No evidence of acute fracture. Electronically signed by: Price Villa MD (06/25/2020 9:02 AM) [id number] DICTATED and SIGNED BY: PRICE VILLA MD DATE: 06/25/20 [id number] Course & Med Decision Making: Course & Med Decision Making Pertinent Labs and Imaging studies reviewed. (See chart for details) On reevaluation patient states she is feeling much better -that the medications improved her strength and feels well to go home, denies any fever or chills. Understands if she is taking insulin she needs to eat food with it. Labs show progressively, worsening, normocytic anemia and thrombocytopenia (trending towards pancytopenia, c/w chemo tx). U/A with UTI. Will discharge home with strict ED return precautions were given for persistent nausea and vomiting, fever, flulike symptoms or flank pain. Encouraged urgent outpatient follow-up with PMD and oncology. Life-threatening processes were considered but are low suspicion at this time, given history, physical exam and ED workup. Pt was educated on all prescription medications and adverse effects. All patient's questions were answered and pt was stable at time of discharge. Life/limb-threatening differential includes but is not limited to, acute coronary syndrome/myocardial infarction, Boerhaave's, DKA, intracranial hemorrhage, ischemic bowel, meningitis, sepsis, surgical abdomen (AAA), toxidrome (drug over/overdose/carbon monoxide, etc), ovarian/testicular torsion, trauma, or infection/sepsis. I spoken with the patient and her caregivers. I explained the patient's condition, diagnoses and treatment plan based on the information available to me at this time. I have answered the patient and her caregiver's questions and addressed any concerns. The patient and her caregivers have a good understanding of patient's diagnosis, condition and treatment plan as can be expected at this point. Vital signs have been stable. Patient's condition is stable and appropriate for discharge from the emergency department. Patient will pursue further outpatient evaluation with primary care physician or other designated or consulting physician as outlined in the discharge instructions. The patient and/or caregivers are agreeable to this plan of care and follow-up instructions have been explained in detail. The patient and/or caregivers have received these instructions in written form and have expressed an understanding of the discharge instructions. The patient and/or caregivers are aware that any significant change of condition or worsening of symptoms should prompt immediate return to this or the closest emergency department or call to 3. Rayshawn Disclaimer: Rayshawn Disclaimer: This electronic medical record was generated, in whole or in part, using a voice recognition dictation system. Departure Departure Impression: Primary Impression: UTI (urinary tract infection) Additional Impressions: Normocytic anemia Thrombocytopenia Disposition: 01 DC HOME SELF CARE/HOMELESS Condition: STABLE Referrals: JAYDE BULLOCK MD (PCP) within 1 week Patient Instructions: Anemia, Nonspecific-Brief, Urinary Tract Infection Additional Instructions: FOLLOW UP WITH: Hematology/Oncology [facility] Address: [address] [place] [id number] EMERGENCY DEPARTMENT GENERAL DISCHARGE INSTRUCTIONS Thank you for coming to [facility] Emergency Department (ED) today and trusting us with you care. We trust that you had a positive experience in our Emergency Department. If you wish to speak to the department management, you may call the Director at [phone]. YOUR FOLLOW UP INSTRUCTIONS ARE FOLLOWS: 1. Do you have a private Doctor? If you do not have a private doctor, please ask for a resource list of physicians or clinics that may be able to assist you with follow up care. 2. The Emergency Physicain has interpreted your x-rays. The X-Ray specialist will also review them. If there is a change in the findings, you will be notified in 48 hours when at all possible. 3. A lab test or culture has been done, your results will be reviewed and you will be notified if you need a change in treatment. ADDITIONAL INSTRUCTIONS AND INFORMATION: 1. Your care today has been supervised by a physician who is specially trained in emergency care. Many problems require more than one evaluation for a complete diagnosis and treatment. We recommend that you schedule your follow up appointment as recommended to ensure complete treatment of you illness or injury. If you are unable to obtain follow up care and continue to have a problem, or if your condition worsens, we recommend that you return to the ED. 2. We are not able to safely determine your condition over the phone nor are we able to give sound medical advice over the phone. For these safety reasons, if you call for medical advice we will ask you to come to the ED for further evaluation. 3. If you have any questions regarding these discharge instructions please call the ED at [phone]. SAFETY INFORMATION: In the interest of safety, wellness, and injury prevention; we encourage you to wear your sealbelt, if you smoke; quite smoking, and we encourage family to use a protective helmet for bicycling and other sporting events that present an increased risk for head injury. IF YOUR SYMPTOMS WORSEN OR NEW SYMPTOMS DEVELOP, OR YOU HAVE CONCERNS ABOUT YOUR CONDITION; OR IF YOUR CONDITION WORSENS WHILE YOU ARE WAITING FOR YOUR FOLLOW UP APPOINTMENT; EITHER CONTACT YOUR PRIMARY CARE DOCTOR, THE PHYSICIAN WHOSE NAME AND NUMBER YOU WERE GIVEN, OR RETURN TO THE ED IMMEDIATELY. Scripts Cefpodoxime Proxetil (CEFPODOXIME PROXETIL) 200 Mg Tablet 1 TAB PO BID for 14 Days, #28 TAB Prov: KELLY CANALES DO 06/25/20 KELLY CANALES DO Jun 25, 2020 06:47
[2020-06-25] MEDS ORDERED: IV NORMAL SALINE 1000ML BAG 1,000 ML IV SCH (07:00)
[2020-06-25] MEDS ORDERED: FAMOTIDINE 20 MG/2 ML VIAL IVP ONE (07:00)
[2020-06-25] MEDS ORDERED: METOCLOPRAMIDE HCL 10 MG/2 ML VIAL. IVP ONE (07:00)
--- NOTE | 2020-06-25 07:10 | RAD ---
XR CHEST 1V INDICATION: n/v COMPARISON STUDY: None. FINDINGS: Right IJ Port-A-Cath. Lungs: Normal lung volume. No pulmonary mass or consolidation. The tracheobronchial tree and hilar st ructures are normal. Pleura: No pleural effusion or pneumothorax. Heart and Mediastinum: Normal cardiac size. Median sternotomy. The great vessels of the thorax are no rmal. IMPRESSION: No acute cardiopulmonary process. Electronically signed by: Joseph Villa MD (06/25/2020 7:07 AM) [id number]
[2020-06-25 07:58] LABS: BASO % 0 % (0-3); EOS # 0.2 x10^3/uL (0.0-0.7); EOS % 2 % (0-3); HEMATOCRIT 28.6 % (36.0-47.0); HEMOGLOBIN 9.6 g/dL (12.0-15.5); LYMPH # 0.4 x10^3/uL (1.0-4.8); LYMPH % 7 % (24-48); MEAN CORPUSCULAR HEMOGLOBIN 31 pg (25-35); MEAN CORPUSCULAR HGB CONC 34 g/dL (31-37); MEAN CORPUSCULAR VOLUME 92 fL (79-100); MONO # 0.1 x10^3/uL (0.0-1.1); MONO % 1 % (0-9); NEUT # 5.6 x10^3/uL (1.8-7.7); NEUT % 90 % (31-73); PLATELET COUNT 103 x10^3/uL (140-400); RED BLOOD COUNT 3.12 x10^6/uL (3.50-5.40); RED CELL DISTRIBUTION WIDTH 14.6 % (11.5-14.5); WHITE BLOOD COUNT 6.3 x10^3/uL (4.0-11.0)
[2020-06-25 08:02] LABS: CALCIUM 8.5 mg/dL (8.5-10.1); CREATININE 0.6 mg/dL (0.6-1.0); GFR 99.1; POTASSIUM 3.8 mmol/L (3.5-5.1)
[2020-06-25 08:13] LABS: ALBUMIN 2.4 g/dL (3.4-5.0); DIRECT BILIRUBIN 0.2 mg/dL (0.0-0.2); MAGNESIUM 1.6 mg/dL (1.8-2.4); TOTAL BILIRUBIN 0.6 mg/dL (0.2-1.0)
[2020-06-25] MEDS ORDERED: HYDROmorphone 2 MG/ML VIAL IVP ONE (08:15)
[2020-06-25] MEDS ORDERED: VANCOMYCIN PER PHARMACY MC PRN (08:15)
[2020-06-25 08:28] LABS: BILIRUBIN,URINE NEGATIVE (NEG); CLARITY,URINE CLEAR; COLOR,URINE YELLOW; NITRITE,URINE NEGATIVE (NEG); PH,URINE 7.5 (<5.0-8.0); PROTEIN,URINE NEGATIVE (NEG-TRACE)
[2020-06-25] MEDS ORDERED: VANCOMYCIN 1.5 GM in IV NORMAL SALINE 500ML BAG 500 ML IV ONE (08:30)
[2020-06-25 08:34] LABS: % EOS 1 % (0-5); % LYMPHS 6 % (24-48); % MONOS 1 % (0-10); % SEGS 92 % (35-66); PLT ESTIMATE DECREASED (ADEQUATE)
[2020-06-25 08:38] LABS: BACTERIA,URINE MANY /HPF (0-FEW); RBC,URINE 0 /HPF (0-2); WBC,URINE TNTC /HPF (0-4)
--- NOTE | 2020-06-25 08:43 | EKG ---
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
--- NOTE | 2020-06-25 09:05 | RAD ---
XR EXAM OF ANKLE_LEFT 3V DATE: 06/25/2020 8:17 AM INDICATION: Left medial ankle swelling/pain COMPARISON: 09/27/2004 FINDINGS: Bones: There is no evidence of acute fracture or dislocation. There are a couple of tiny chronic appe aring ossific densities adjacent to the medial and lateral malleoli, which may relate to remote injur y. Joints: The ankle mortise is congruent. No widening of the distal tibiofibular syndesmosis. Miscellaneous: Surgical clip overlying the medial leg soft tissues. IMPRESSION: No evidence of acute fracture. Electronically signed by: Joseph Villa MD (06/25/2020 9:02 AM) [id number]
[2020-06-25] MEDS ORDERED: MAGNESIUM SULFATE 2GM 50 ML IV ONE (09:15)
[2020-06-25] MEDS ORDERED: cefTRIAXone IV Push 1 GM VIAL. IVP ONE (09:15)
[2020-06-25 10:43] VITALS: BP 115/58
[2020-06-25] MEDS ORDERED: CEFP200T PO (13:19)
[2020-06-25] MEDS ORDERED: HYDROcodone/APAP 5/325MG 1 TAB TABLET PO ONE (13:45)
== END 2020-06-25 14:52 | disposition home or self-care (01) ==
LOC: ER 06:34
DX: N39.0 Urinary tract infection, site not specified (principal); D64.9 Anemia, unspecified; D69.6 Thrombocytopenia, unspecified; M25.572 Pain in left ankle and joints of left foot; R22.42 Localized swelling, mass and lump, left lower limb; E11.9 Type 2 diabetes mellitus without complications; E78.00 Pure hypercholesterolemia, unspecified; I11.9 Hypertensive heart disease without heart failure; I25.10 Atherosclerotic heart disease of native coronary artery without angina pectoris; Z95.1 Presence of aortocoronary bypass graft; F17.200 Nicotine dependence, unspecified, uncomplicated
CPT/HCPCS: 36415; 71045; 73610; 80048; 80076; 81001; 82550; 83605; 83690; 83735; 84484; 85007; 85025; 87040; 87086; 93005; 96361; 96365; 96366; 96367; 96368; 96375; 99285; J0696; J1170; J2765; J3370; J3475; J3490; J7030; J7040; 87077; 87186